=== PATIENT | male | born 1950 | race Caucasian/White ===

== ENCOUNTER → 2024-07-24 10:15 | Outpatient (REF) | payer MEDICARE, OTHER, SELFPAY | LOC: RAD 10:15 | PROVIDERS: ATTENDING PHYSICIAN Physician Assistant | DX: R20.0 Anesthesia of skin (principal) | CPT/HCPCS: 72052 ==

== ENCOUNTER → 2024-09-12 08:04 | Outpatient (REF) | payer MEDICARE, OTHER, SELFPAY | LOC: MRI 3T 08:04 | PROVIDERS: ATTENDING PHYSICIAN Physician Assistant | DX: R93.89 Abnormal findings on diagnostic imaging of other specified body structures (principal) | CPT/HCPCS: 70551 ==

== ENCOUNTER 2024-12-07 10:17 | Emergency (ER) | payer MEDICARE, OTHER, SELFPAY ==
[2024-12-07 10:24] VITALS: BP 138/84
[2024-12-07 11:00] VITALS: BP 142/90
[2024-12-07 11:37] LABS: ALT (SGPT) 148 U/L (0-50); AST (SGOT) 163 U/L (17-59); Albumin 3.6 g/dl (3.5-5.0); Alkaline Phosphatase 123 U/L (38-126); Blood Urea Nitrogen 21 mg/dl (9-20); Calcium 8.7 mg/dl (8.4-10.2); Carbon Dioxide 26 mmol/L (22-30); Chloride 105 mmol/L (98-107); Glucose 100 mg/dl (70-99); Potassium 3.6 mmol/L (3.5-5.1); Sodium 137 mmol/L (135-145); Total Protein 6.2 g/dl (6.3-8.2); eGFR > 60.00
[2024-12-07] MEDS: NSS 1000 IV (11:37)
[2024-12-07] MEDS: ZOFRAN 4 MG IV (11:38)
[2024-12-07] MEDS: PEPCID 20 MG IV (11:39)
[2024-12-07 11:41] LABS: Lipase 117 U/L (23-300)
[2024-12-07 11:43] LABS: Hematocrit 43.9 % (39.0-52.0); Hemoglobin 15.2 g/dL (13.0-18.0); Mean Corp Hgb Conc. 34.6 g/dL (33.0-37.0); Mean Corpuscular Hgb 32.2 pg (27.0-31.0); Red Blood Cell Count 4.72 10^6/uL (4.70-6.10); White Blood Cell Count 8.3 10^3/uL (4.8-10.8)
[2024-12-07 12:00] VITALS: BP 141/83
[2024-12-07 12:54] LABS: Mean Platelet Volume 12.2 fL (7.4-10.4); Platelet Count 51 10^3/uL (130-400)
[2024-12-07 13:00] VITALS: BP 147/85
--- NOTE | 2024-12-07 13:27 | ED.GENMED ---
History of Present Illness
<GLEN Rogers Last Filed: 12/07/24 14:30>
General
Chief Complaint: Abdominal Symptoms
Source: patient
Exam Limitations: none
Time Seen by Provider: 12/07/24 11:03
History of Present Illness
History of Present Illness:
74-year-old male otherwise quite healthy presents with 3 to 4 days worth of fatigue sweats chills nausea. He had vomiting at the onset of the symptoms. He had temperature maximum at home of 102. There is no significant abdominal pain. No
diarrhea. His ate all the same food he did and she did not get sick. He feels overall tired and dehydrated. No other complaints
Past History
<GLEN Rogers Last Filed: 12/07/24 14:30>
Past History
ED Past Medical History: None
ED Past Surgical History: Orthopedic (ACL right knee surgery)
Social History
Tobacco: Non-smoker
Personal:
Living: with family
Employment: Employed
Phy Exam
<GLEN Rogers Last Filed: 12/07/24 14:30>
Physical Exam
Physical Exam:
General: Well-appearing male no acute respiratory distress
HEENT normocephalic atraumatic
Heart: Regular rate and rhythm
Lungs: Clear no wheeze
Abdomen is soft nontender nondistended no guarding or rebound
Extremities: No cyanosis or edema
Skin warm no rash
Course
<GLEN Rogers Last Filed: 12/07/24 14:30>
Orders/Labs/Results
Orders:
Orders
12/07/24 11:07
Complete Blood Count/With Diff Urgent
Comprehensive Metabolic Panel Urgent
Lipase Urgent
Comment: ADD ON
Manual Differential Urgent
Monotest Urgent
Comment: ADD ON
12/07/24 11:15
Famotidine [Pepcid] 20 mg IV NOW STA
12/07/24 11:16
Add On- LAB Urgent
Tests Added?: lipase
12/07/24 11:20
Ondansetron Injectable [Zofran] 4 mg IV NOW STA
12/07/24 11:30
0.9% Sodium Chloride 1000 ml [Nss] 1,000 ml IV BOLUS
12/07/24 15:24
Add On- LAB Urgent
Tests Added?: monospot
Abnormal Lab Results
12/07/24
11:07
MCH 32.2 H pg
(27.0-31.0)
Plt Count 51 L 10^3/uL
(130-400)
MPV 12.2 H fL
(7.4-10.4)
BUN 21 H mg/dl
(9-20)
Glucose 100 H mg/dl
(70-99)
AST 163 H U/L
(17-59)
ALT 148 H U/L
(0-50)
Total Protein 6.2 L g/dl
(6.3-8.2)
12/07/24 11:07
12/07/24 11:07
Vital Signs
Initial and Last Documented VS:
Initial Vital Signs
Temp Pulse Resp BP Pulse Ox
98.0 F 94 16 138/84 95
12/07/24 10:24 12/07/24 10:24 12/07/24 10:24 12/07/24 10:24 12/07/24 10:24
Last Documented Vital Signs
Temp Pulse Resp BP Pulse Ox
98.0 F 71 16 139/83 91
12/07/24 10:24 12/07/24 15:38 12/07/24 15:38 12/07/24 15:38 12/07/24 15:38
<Marya Monson PA-C - Last Filed: 12/07/24 15:40>
Orders/Labs/Results
Orders:
Orders
12/07/24 11:07
Complete Blood Count/With Diff Urgent
Comprehensive Metabolic Panel Urgent
Lipase Urgent
Comment: ADD ON
Manual Differential Urgent
Monotest Urgent
Comment: ADD ON
12/07/24 11:15
Famotidine [Pepcid] 20 mg IV NOW STA
12/07/24 11:16
Add On- LAB Urgent
Tests Added?: lipase
12/07/24 11:20
Ondansetron Injectable [Zofran] 4 mg IV NOW STA
12/07/24 11:30
0.9% Sodium Chloride 1000 ml [Nss] 1,000 ml IV BOLUS
12/07/24 15:24
Add On- LAB Urgent
Tests Added?: monospot
Abnormal Lab Results
12/07/24
11:07
MCH 32.2 H pg
(27.0-31.0)
Plt Count 51 L 10^3/uL
(130-400)
MPV 12.2 H fL
(7.4-10.4)
BUN 21 H mg/dl
(9-20)
Glucose 100 H mg/dl
(70-99)
AST 163 H U/L
(17-59)
ALT 148 H U/L
(0-50)
Total Protein 6.2 L g/dl
(6.3-8.2)
12/07/24 11:07
12/07/24 11:07
Vital Signs
Initial and Last Documented VS:
Initial Vital Signs
Temp Pulse Resp BP Pulse Ox
98.0 F 94 16 138/84 95
12/07/24 10:24 12/07/24 10:24 12/07/24 10:24 12/07/24 10:24 12/07/24 10:24
Last Documented Vital Signs
Temp Pulse Resp BP Pulse Ox
98.0 F 71 16 139/83 91
12/07/24 10:24 12/07/24 15:38 12/07/24 15:38 12/07/24 15:38 12/07/24 15:38
<Christiano Desai PA-C - Last Filed: 12/07/24 14:30>
MDM/Problems Addressed
Differential Diagnosis Includes:
Fatigue chills sweats nauseous vomiting fever. Benign abdominal exam. Consider viral illness versus electrolyte abnormality
Check labs. Fluids ordered. Zofran and Pepcid ordered
<Marya Monson PA-C - Last Filed: 12/07/24 15:40>
*Critical Care Note
Total Time (30-74mins, 75-104mins- exclusive of procedures): Not Applicable
<Christiano Desai PA-C - Last Filed: 12/07/24 14:30>
Update Note
Update Note:
Patient reevaluated feeling better after Zofran and fluids. I suspect underlying viral illness. Of note, however, patient has thrombocytopenia with a platelet count of 51. This is new for him. There is no blood or of active bleeding. Liver
functions also slightly elevated. Suspect underlying viral illness. Advise recheck of blood work next week. Will prescribe Zofran if needed for nausea. Stable for discharge
<Marya Monson PA-C - Last Filed: 12/07/24 15:40>
Update Note
Update Note:
Patient reevaluated feeling better after Zofran and fluids. I suspect underlying viral illness. Of note, however, patient has thrombocytopenia with a platelet count of 51. This is new for him. There is no blood or of active bleeding. Liver
functions also slightly elevated. Suspect underlying viral illness. Advise recheck of blood work next week. Will prescribe Zofran if needed for nausea. Stable for discharge
1538: I assumed care of patient awaiting path review of CBC. Only additional abnormality is atypical lymphocytosis of 19%. Monospot added for completeness. Patient remains well appearing and is asymptomatic on reassessment. He is eager to be
discharged.
ED Attending Note
<Christiano Desai PA-C - Last Filed: 12/07/24 14:30>
-
Portions of this chart may have been created with voice recognition software.� Occasional wrong word or��sound alike� substitutions may have occurred due to the inherent limitations of voice recognition software.
Discharge Plan
Departure
Patient Disposition: Home (Routine Discharge)
Date of Disposition: 12/07/24
Time of Disposition: 15:32
Patient with high blood pressure during this ER visit?: Yes
Discharge Problem:
Vomiting, Thrombocytopenia, Transaminitis
Instructions: Nausea and Vomiting, Adult (DC)
Prescriptions:
New
ondansetron 4 mg tablet,disintegrating
4 mg PO Q8H PRN (Reason: nausea and vomiting) Qty: 10 0RF
No Action
rabies vacc,human diploid (PF) [Imovax Rabies Vaccine (PF)] 1 ML recon soln
1 ml IM DAILY Qty: 3 0RF
Rx Instructions:
Give one ml IM on 02/11, 02/15 and 02/22
Referrals:
Antelmo Montesinos PA [Family Provider, Family Practice]
Activity Restrictions/Additional Instructions:
As discussed, your platelets were slightly low in your blood work and your liver functions were slightly elevated. This could be related to underlying viral illness. The Zofran if needed for nausea. Please recheck with your doctor and have blood
rechecked next week. Return here for worsening symptoms including vomiting pain or bleeding.
Interventions
Interventions:
*Risk Screen - Suicide Last Done: 12/07/24 10:24
*General Assessment Last Done: 12/07/24 11:40
*Neglect/Abuse Screening Last Done: 12/07/24 10:24
*ED- Fall Risk Assessment Last Done: 12/07/24 11:40
*ED COVID-19 Vaccine History Last Done: 12/07/24 11:40
AW-Pvgwjf-Izgplhzjoy Assessment Last Done: 12/07/24 11:05
Discharge Date and Time
Print Language: [place]
[2024-12-07 15:10] LABS: Absolute Neutrophils -Man Diff 4.6 10^3/uL (1.4-6.5); Atypical Lymphocytes 19 %; Band Neutrophils 1 % (0-3); Lymphocytes 23 % (20-51); Monocytes 2 % (2-9); Segmented Neutrophils 55 % (42-75)
[2024-12-07 15:13] LABS: Platelets Checked Yes
[2024-12-07 15:14] LABS: Normal RBC Morphology Yes; Total Cells Counted 100
[2024-12-07 15:38] VITALS: BP 139/83
[2024-12-07 16:38] LABS: Monotest Negative (Negative)
== END 2024-12-07 15:44 | disposition home or self-care (01) ==
LOC: EMR 10:17
PROVIDERS: EMERGENCY PHYSICIAN Emergency Medicine; FAMILY PHYSICIAN Physician Assistant
DX: R11.2 Nausea with vomiting, unspecified (principal); D69.6 Thrombocytopenia, unspecified; R74.01 Elevation of levels of liver transaminase levels
CPT/HCPCS: 96374; 96375; 96361; 99284; 80053; 83690; 85025; 86308

== ENCOUNTER 2024-12-11 17:49 | Emergency (ER) | payer MEDICARE, OTHER, SELFPAY ==
[2024-12-11 17:54] VITALS: BP 125/66
[2024-12-11 18:25] LABS: % Basophils 0.4 % (0-2); % Eosinophils 0.2 % (0-6); % Immature Granulocytes 1.2 % (0-0.5); % Monocytes 9.2 % (1.7-9.3); Absolute Immature Granulocytes 0.1 10^3/uL (0-0.05); Absolute Lymphocytes 2.6 10^3/uL (1.2-3.4); Absolute Neutrophils 6.7 10^3/uL (1.4-6.5); Hematocrit 40.1 % (39.0-52.0); Hemoglobin 13.9 g/dL (13.0-18.0); Mean Corp Hgb Conc. 34.7 g/dL (33.0-37.0); Mean Corpuscular Hgb 32.1 pg (27.0-31.0); Mean Corpuscular Volume 92.6 fL (80.0-94.0); Mean Platelet Volume 10.2 fL (7.4-10.4); Nucleated Red Blood Cells % 0 % (-); Platelet Count 215 10^3/uL (130-400); Red Blood Cell Count 4.33 10^6/uL (4.70-6.10); Red Cell Dist. Width 13.2 % (11.5-14.5); White Blood Cell Count 10.4 10^3/uL (4.8-10.8)
[2024-12-11 18:38] LABS: Lactic Acid 0.7 mmol/L (0.7-2.0)
[2024-12-11 18:45] LABS: ALT (SGPT) 108 U/L (0-50); AST (SGOT) 60 U/L (17-59); Albumin 3.6 g/dl (3.5-5.0); Alkaline Phosphatase 109 U/L (38-126); Blood Urea Nitrogen 10 mg/dl (9-20); Calcium 8.5 mg/dl (8.4-10.2); Carbon Dioxide 21 mmol/L (22-30); Chloride 106 mmol/L (98-107); Glucose 114 mg/dl (70-99); Potassium 4.1 mmol/L (3.5-5.1); Sodium 134 mmol/L (135-145); Total Bilirubin 0.8 mg/dl (0.2-1.3); Total Protein 6.3 g/dl (6.3-8.2); eGFR > 60.00
[2024-12-11 19:32] VITALS: BP 132/79
[2024-12-11 19:34] VITALS: BMI 26.1
[2024-12-11 19:45] LABS: Urine Albumin 1+ (Neg - Trace); Urine Bilirubin Negative (Negative); Urine Character Clear (Clear); Urine Color Yellow; Urine Glucose Negative (Negative); Urine Ketone 3+ (Negative); Urine Leukocyte Negative (Negative); Urine Nitrite Negative (Negative); Urine Occult Blood Negative (Negative); Urine Urobilinogen 2+ (Neg - 1+)
[2024-12-11 20:03] LABS: Urine Calcium Oxalate Crystals Present; Urine Red Blood Cell 0-2 /HPF (0-2); Urine Squamous Cell None seen /LPF (Few); Urine White Cell 0-2 /HPF (0-5)
[2024-12-11 21:47] VITALS: BP 123/85
--- NOTE | 2024-12-11 22:03 | ED.GENMED ---
History of Present Illness
General
Chief Complaint: Fever
Source: patient and spouse
Time Seen by Provider: 12/11/24 18:57
History of Present Illness
History of Present Illness:
Note:
CHIEF COMPLAINT(S)
Fatigue and nausea.
HISTORY OF PRESENT ILLNESS
The patient is a 74-year-old male with a history of inner ear issues, compressed disc, and pinched nerve presenting with fatigue and nausea. Symptoms began approximately a week and a half ago with disorientation and difficulty standing up, followed
by excessive sleepiness. The patient reported vomiting last . He received IV fluids during a previous ER visit, which improved his appetite slightly. Fever was noted, responsive to acetaminophen. The patient continues to experience
persistent fatigue and nausea, but no abdominal pain, diarrhea, or new cough. Chronic cough attributed to woodworking is ongoing, with decreased frequency and severity.
ADDITIONAL HISTORY OBTAINED FROM SOURCES OTHER THAN THE PATIENT
According to the spouse, the patient has been excessively sleeping and had a fever starting approximately a week ago Saturday.
PAST MEDICAL HISTORY
- Inner ear issues affecting balance
- History of shingles
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
PHYSICAL EXAM
- The patient is awake, alert, and oriented.
- No respiratory distress noted.
- The heart is regular without murmur.
- Lungs are clear and equal bilaterally.
- Abdomen is not distended; no tenderness, rebound, or guarding.
- No costovertebral angle tenderness.
- No rashes observed.
- Cranial nerves are grossly intact.
- No focal motor deficits.
- Skin is warm, well-perfused, and dry.
- Nursing notes reviewed and vital signs reviewed.
PLAN
- Obtain urine sample to rule out urinary tract infection.
- Perform chest X-ray to exclude pneumonia, considering chronic cough history.
- Compare current findings with previous ER visit to assess for any changes or new insights.
- Consider potential viral illnesses, Lyme disease, or other persistent infections if initial tests are inconclusive.
DIFFERENTIAL DIAGNOSIS
The Differential Diagnosis includes, in no particular order and is not limited to:
1. Viral illness
2. Urinary tract infection
3. Pneumonia
4. Lyme disease
5. Vestibular dysfunction
6. Electrolyte imbalance
7. Dehydration
8. Medication side effect
9. Anemia
10. Gastrointestinal infection
Disposition:
SUMMARY OF ENCOUNTER
[id number] male presented feeling and appearing much improved. Abdomen is benign. Lungs are clear. Further evaluation with CT was considered however patient would like to forego that at this time.patient does agree to follow-up with his PCP
for ongoing evaluation blood cultures and Lyme testing was sent and are pending. White blood cell count okay.
DISPOSITION
The patient feels well enough to go home and will follow up with his PCP.
INDEPENDENT REVIEW OF LABS AND INTERPRETATION OF TESTS
- My independent review of the CBC shows normal white count and platelets at 215,000, which are improved from the recent visit on December 07.
RADIOLOGY � INDEPENDENT INTERPRETATION:
- My independent interpretation of the chest X-ray is no evidence of pneumonia.
MEDICAL DECISION MAKING
1. Chronic conditions affecting care: History of inner ear issues, compressed disc, and pinched nerve.
2. Data Reviewed:
- Labs were reviewed, including improvement in platelets from December 07.
- Old records inclusive of labs from December 07 and October 08 were reviewed.
- Chest X-ray interpreted showing no pneumonia.
3. Risk: Consideration of admission/observation was made due to complexity/risk. However, outpatient management is appropriate based on reassuring work-up, stable vitals, symptom control, and follow-up reliability.
PATHOLOGIES TO CONSIDER
- Viral illness
- Hematologic disorders
Past History
Past History
ED Past Medical History: None
ED Past Surgical History: Orthopedic (ACL right knee surgery)
Social History
Tobacco: Non-smoker
Personal:
Living: with family
Employment: Employed
Phy Exam
Physical Exam
Physical Exam:
.
Course
Orders/Labs/Results
Orders:
Orders
12/11/24 18:14
Complete Blood Count/With Diff Urgent
Comprehensive Metabolic Panel Urgent
Lactate Level [Lactic Acid] Urgent
Lyme Progressive Urgent
Blood Culture Urgent
YOSSI Source: Blood/Venous
Specimen Description:
12/11/24 19:09
Add On- LAB Urgent
Tests Added?: lyme progressive
CR Chest - 2 Views Urgent
Comment:
Reason For Exam: fever
12/11/24 19:23
Urinalysis Reflex To Culture Urgent
Date Specimen was Collected: 12/11/24
Time Specimen was Collected: 19:05
Urine Microscopic Reflex Cult Urgent
Blood Culture Urgent
YOSSI Source: Blood/Venous
Specimen Description:
Abnormal Lab Results
12/11/24 12/11/24
18:14 19:23
RBC 4.33 L 10^6/uL
(4.70-6.10)
MCH 32.1 H pg
(27.0-31.0)
Abs Immat Gran (auto) 0.1 H 10^3/uL
(0-0.05)
Absolute Neuts (auto) 6.7 H 10^3/uL
(1.4-6.5)
Absolute Monos (auto) 1.0 H 10^3/uL
(0.1-0.6)
Immature Gran % 1.2 H %
(0-0.5)
Sodium 134 L mmol/L
(135-145)
Carbon Dioxide 21 L mmol/L
(22-30)
Glucose 114 H mg/dl
(70-99)
AST 60 H U/L
(17-59)
ALT 108 H U/L
(0-50)
Urine Ketones 3+ A
(Negative)
Urine Urobilinogen 2+ A
(Neg - 1+)
Urine Albumin (Reflex) 1+ A
(Neg - Trace)
12/11/24 18:14
12/11/24 18:14
Vital Signs
Initial and Last Documented VS:
Initial Vital Signs
Temp Pulse Resp BP Pulse Ox
99.1 F 89 16 125/66 93
12/11/24 17:54 12/11/24 17:54 12/11/24 17:54 12/11/24 17:54 12/11/24 17:54
Last Documented Vital Signs
Temp Pulse Resp BP Pulse Ox
98.9 F 85 16 123/85 98
12/11/24 21:47 12/11/24 21:47 12/11/24 21:47 12/11/24 21:47 12/11/24 21:47
*Pulse Oximetry
SaO2: 98
Oxygen Mode of Delivery: Room air
Patient hypoxic: no
*Critical Care Note
Total Time (30-74mins, 75-104mins- exclusive of procedures): Not Applicable
ED Attending Note
-
Portions of this chart may have been created with voice recognition software.� Occasional wrong word or��sound alike� substitutions may have occurred due to the inherent limitations of voice recognition software.
Discharge Plan
Departure
Patient Disposition: Home (Routine Discharge)
Date of Disposition: 12/11/24
Time of Disposition: 22:04
Patient with high blood pressure during this ER visit?: No
Discharge Problem:
Fatigue, Nausea, Fever
Instructions: Fever, Adult (DC), Acute Nausea and Vomiting
Prescriptions:
No Action
rabies vacc,human diploid (PF) [Imovax Rabies Vaccine (PF)] 1 ML recon soln
1 ml IM DAILY Qty: 3 0RF
Rx Instructions:
Give one ml IM on 02/11, 02/15 and 02/22
ondansetron 4 mg tablet,disintegrating
4 mg PO Q8H PRN (Reason: nausea and vomiting) Qty: 10 0RF
Referrals:
Antelmo Montesinos PA [Family Provider, Family Practice]
Activity Restrictions/Additional Instructions:
Please see your doctor in the next 3 to 5 days for follow-up and reevaluation further workup if your symptoms persist. Blood cultures are pending. Lyme testing is also pending. Return immediately for intractable vomiting, abdominal pain,
shortness of breath, changes in mentation or any other concerns. Please drink plenty of fluids.
Interventions
Interventions:
*Risk Screen - Suicide Last Done: 12/11/24 19:34
*General Assessment Last Done: 12/11/24 19:34
*Neglect/Abuse Screening Last Done: 12/11/24 19:34
*ED- Fall Risk Assessment Last Done: 12/11/24 17:54
*ED COVID-19 Vaccine History Last Done: 12/11/24 17:54
ED- Neurological Assessment Last Done: 12/11/24 19:34
ED-Skin Assessment Last Done: 12/11/24 19:34
Discharge Date and Time
Print Language: FAROESE
[2024-12-11 22:07] VITALS: BP 139/80
[2024-12-14 13:43] LABS: Lyme Antibody Screen, EIA Equivocal (Negative)
== END 2024-12-11 22:19 | disposition home or self-care (01) ==
LOC: EMR 17:49
PROVIDERS: Student in an Organized Health Care Education/Training Program; EMERGENCY PHYSICIAN Emergency Medicine; FAMILY PHYSICIAN Physician Assistant
DX: R50.9 Fever, unspecified (principal); R53.83 Other fatigue; R11.0 Nausea
CPT/HCPCS: 99284; 71046; 80053; 81003; 81015; 83605; 85025; 86617; 86618; 87040

== ENCOUNTER 2024-12-14 14:41 | Inpatient (IN) | payer MEDICARE, OTHER, SELFPAY ==
[2024-12-14] VITALS (11 sets, daily range): BP systolic 100–151; BP diastolic 56–78; BMI 25.1; BMI 25.3
[2024-12-14 10:36] LABS: % Basophils 0.1 % (0-2); % Immature Granulocytes 0.6 % (0-0.5); % Lymphocytes 10.8 % (20.5-51.1); % Monocytes 5.1 % (1.7-9.3); % Neutrophils 83.4 % (42.2-75.2); Absolute Lymphocytes 0.7 10^3/uL (1.2-3.4); Absolute Monocytes 0.4 10^3/uL (0.1-0.6); Absolute Neutrophils 5.7 10^3/uL (1.4-6.5); Hematocrit 40.7 % (39.0-52.0); Hemoglobin 13.8 g/dL (13.0-18.0); Mean Corp Hgb Conc. 33.9 g/dL (33.0-37.0); Mean Corpuscular Hgb 31.4 pg (27.0-31.0); Mean Corpuscular Volume 92.5 fL (80.0-94.0); Nucleated Red Blood Cells % 0 % (-); Red Cell Dist. Width 13.3 % (11.5-14.5); White Blood Cell Count 6.9 10^3/uL (4.8-10.8)
[2024-12-14 10:44] LABS: ALT (SGPT) 53 U/L (0-50); AST (SGOT) 36 U/L (17-59); Albumin 3.3 g/dl (3.5-5.0); Alkaline Phosphatase 94 U/L (38-126); Blood Urea Nitrogen 22 mg/dl (9-20); Calcium 8.1 mg/dl (8.4-10.2); Carbon Dioxide 22 mmol/L (22-30); Chloride 105 mmol/L (98-107); Estimated Creatinine Clearance 56 ml/min; Glucose 147 mg/dl (70-99); Potassium 4.1 mmol/L (3.5-5.1); Sodium 137 mmol/L (135-145); Total Bilirubin 1.1 mg/dl (0.2-1.3); Total Protein 6.1 g/dl (6.3-8.2); eGFR > 60.00
[2024-12-14 10:48] LABS: Mean Platelet Volume 11.3 fL (7.4-10.4); Platelet Count 84 10^3/uL (130-400)
--- NOTE | 2024-12-14 11:00 | ED.GENMED ---
History of Present Illness
General
Chief Complaint: Weakness
Source: patient and spouse
Exam Limitations: none
Time Seen by Provider: 12/14/24 10:19
Nursing documentation reviewed up to this point in time: agreed with
History of Present Illness
History of Present Illness:
The patient is a 74-year-old male w h/o HLD, left arm tingling due to pinched nerve, presenting with exhaustion and nausea for the past two weeks. He reports feeling dehydrated and has had poor appetite. The patient previously visited the ER last
Saturday and Saturday with similar symptoms, with no significant findings in workup. He has been having fevers, last night 103.0 and today 101.3, last Advil 4 a.m. He reports nausea and vomited once 4 days ago and twice yesterday. No chest pain,
breathing difficulties, abdominal pain, headaches. Feels lightheaded and fatigued. Urination is normal, with the last bowel movement 3 days ago, regular.
Past History
Past History
ED Past Medical History: Hypercholesterolemia
ED Past Surgical History: Orthopedic (ACL right knee surgery) and Tonsilectomy
Social History
Tobacco: Non-smoker
Personal:
Living: with family
Employment: Employed
Review of Systems
Review of Systems
Allergies reviewed?: Yes
All Other Systems: ROS reviewed and negative except as documented in HPI and ROS
Constitutional: Reports fever, weight loss, fatigue and chills
Respiratory: Denies trouble breathing
Cardiac: Denies chest pain, diaphoresis, palpitations or syncope
ABD/GI: Reports nausea, vomiting and anorexia; Denies abdominal pain, diarrhea, bloody stools or black stools
: Denies dysuria, frequency or difficulty voiding
Musculoskeletal: Reports no symptoms
Skin: Reports no symptoms
Neurological: Reports weakness and other (chronic tingling left arm due to pinched nerve); Denies headache
Phy Exam
Physical Exam
Physical Exam:
GENERAL: No acute distress. A&Ox3.
CONSTITUTIONAL: Afebrile.
EYES: clear, conjunctivae normal
ENMT: moist mucus membranes, Pharynx nl
RESPIRATORY: Regular respirations, nonlabored, lungs clear.
CARDIOVASCULAR: Regular rate and rhythm, no murmurs, no rubs.
GI: Soft, nontender, normal BS
MUSCULOSKELETAL: Moves with ease. Well perfused. No edema
SKIN: Warm, dry, pink
PSYCH: Normal mood and affect. Well kept, interactive and appropriate
NEUROLOGIC: Awake, alert and oriented. No focal neurological deficits
Course
Orders/Labs/Results
Orders:
Orders
12/14/24 Breakfast
Regular
At Your Request: Full Participation
Does patient need a safe tray?: No
12/14/24 10:00
Electrocardiogram (*1) Urgent
Reason for Study: Syncope
12/14/24 10:01
EKG- Treatment ONCE
12/14/24 10:15
Complete Blood Count/With Diff Urgent
Comprehensive Metabolic Panel Urgent
NT-proBNP Urgent
Troponin I Urgent
12/14/24 10:58
0.9% Sodium Chloride 1000 ml [Nss] 1,000 ml IV BOLUS
12/14/24 11:07
CT Chest/abd/pel W Iv Cont Urgent
Comment:
Reason For Exam: fever, new abn labs, tachy, SOB, near syncope
12/14/24 11:13
Acetaminophen [Tylenol] 650 mg PO NOW STA
12/14/24 13:24
Electrocardiogram (*1) Urgent
Reason for Study: Tachycardia
EKG- Treatment ONCE
12/14/24 14:02
Admit/Transfer Patient As Directed
Co-Sign Provider:
Level of Care: Inpatient admission
Assign to:: Telemetry
Physician / Group: [email or web address]
Diagnosis: Fever of munknown origin, N/V, Transist new onset A Fib, Low platelets
Reason for Telemetry: Arrhythmia
Date to Stop Telemetry: 12/17/24
Time to Stop Telemetry: 11:00
Reason for Hospitalization: Fever of munknown origin, N/V, Transist new onset A Fib, Low platelets
Expected length of stay greater than two midnights?: Yes
ELOS- Estimated Length of Stay in days: 3
I certify the patient meets the requirements for IP care: Yes
12/14/24 14:05
Code Status As Directed
Resuscitation Status: Full Code
12/14/24 18:10
Acetaminophen [Tylenol] 650 mg PO Q4HPRN PRN
Bisacodyl [Dulcolax] 10 mg RECTAL [id number] PRN
Docusate W/Senna [Senokot-S] 1 tablet PO BIDPRN PRN
Polyethylene Glycol Powder [Miralax] 17 grams PO DAILYPRN PRN
12/14/24 18:10
CARDIOLOGY CONSULT Routine
Consulting Provider: Alfie De La Garza
Was physician already notified: Yes
Reason for consult: New onset prox AF
INFECTIOUS DISEASE CONSULT Routine
Consulting Provider: Serenity Cook
Was physician already notified: Yes
Reason for consult: FUO, low platelets
ONCOLOGY CONSULT Routine
Consulting Provider: Uday Colby
Was physician already notified: Yes
Reason for consult: Trembocytopenia
Activity As Directed
Activity Level: With Assistance
Intake/ Output As Directed
Frequency: Per unit guidelines
Pneumatic Compression Sleeves As Directed
Type: Knee high
Vital Signs As Directed
Frequency: Per unit guidelines
O2 Therapy [RESP] Routine
Nasal Cannula Liter Flow: 2 LPM
Titrate/Wean O2 to maintain O2 sat greater than (%): 94
DX Deep Vein Thrombosis Video Routine
12/14/24 18:45
0.9% Sodium Chloride 1000 ml [Nss] 1,000 ml IV 100 mls/hr
12/14/24 21:05
Lyme Progressive Routine
Troponin I Q8H
12/15/24 02:58
Troponin I Q8H
12/15/24 05:22
Complete Blood Count/With Diff IN AM
Comprehensive Metabolic Panel IN AM
TSH IN AM
12/15/24 06:00
Echo 2D MMode Color/Doppler IN AM
Reason for Study: transient Prx AF new onset
12/15/24 09:38
Troponin I Q8H
12/17/24 11:00
DC Protocol for Telemetry ONCE
Abnormal Lab Results
12/14/24
10:15
RBC 4.40 L 10^6/uL
(4.70-6.10)
MCH 31.4 H pg
(27.0-31.0)
Plt Count 84 L D 10^3/uL
(130-400)
MPV 11.3 H fL
(7.4-10.4)
Absolute Lymphs (auto) 0.7 L 10^3/uL
(1.2-3.4)
Immature Gran % 0.6 H %
(0-0.5)
Neutrophils % 83.4 H %
(42.2-75.2)
Lymphocytes % 10.8 L %
(20.5-51.1)
BUN 22 H mg/dl
(9-20)
Glucose 147 H mg/dl
(70-99)
Calcium 8.1 L mg/dl
(8.4-10.2)
ALT 53 H U/L
(0-50)
Total Protein 6.1 L g/dl
(6.3-8.2)
Albumin 3.3 L g/dl
(3.5-5.0)
12/14/24 10:15
12/14/24 10:15
Vital Signs
Initial and Last Documented VS:
Initial Vital Signs
Pulse Resp Pulse Ox
120 19 90
12/14/24 10:07 12/14/24 10:07 12/14/24 10:07
Last Documented Vital Signs
Temp Pulse Resp BP Pulse Ox
99.8 F 104 20 136/76 93
12/15/24 11:15 12/15/24 11:21 12/15/24 11:15 12/15/24 11:21 12/15/24 11:15
Deputy Sheriff Bailiff consulted with Physician
Deputy Sheriff Bailiff consulted with physician?: Yes
Name of Physician Consulted: Gregory
MDM/Problems Addressed
Differential Diagnosis Includes:
The Differential Diagnosis includes, in no particular order and is not limited to:
1. Viral illness
2. Dehydration
3. Electrolyte Imbalance
5. Acute Renal Insufficiency
6. Sepsis
7. TN
8. Atrial Fibrillation
MDM/Problems Addressed:
The patient is a 74-year-old male w h/o HLD, left arm tingling due to pinched nerve, presenting with exhaustion and nausea for the past two weeks. He reports feeling dehydrated and has had poor appetite. The patient previously visited the ER last
Saturday and Saturday with similar symptoms, with no significant findings in workup. He has been having fevers, last night 103.0 and today 101.3, last Advil 4 a.m. He reports nausea and vomited once 4 days ago and twice yesterday. No chest pain,
breathing difficulties, abdominal pain, headaches. Feels lightheaded and fatigued. Urination is normal, with the last bowel movement 3 days ago, regular.
EKG: Afib with RVR HR 111, new
Seen here on 12/07 and 12/11 for similar symptoms, no significant findings. offered CT abd for mild elevation in liver enzymes but pt declined at that time.
Plan: IVFs, basic labs, troponin. With weight loss, fevers, significant fatigue, after discussion with Dr. Jenkins, persistent symptoms with get CT chest/abd/pelvis
12:00 p.m.
CBC: Platelets 84 otherwise unremarkable
CMP: No clinically significant abnormality
1:[address] abd/pelvis/chest showing nothing acute
74 yo here for 3rd time in one week for fevers, severe general fatigue, can't hold anything down, new onset a fib on arrival, now sinus with PACs, new onset thrombocytopenia.
Hospitalist notified of admission.
*Pulse Oximetry
SaO2: 91
Oxygen Mode of Delivery: Room air
Patient hypoxic: yes
*Critical Care Note
Total Time (30-74mins, 75-104mins- exclusive of procedures): Not Applicable
ED Attending Note
-
Portions of this chart may have been created with voice recognition software.� Occasional wrong word or��sound alike� substitutions may have occurred due to the inherent limitations of voice recognition software.
Discharge Plan
Departure
Patient Disposition: Admit
Date of Disposition: 12/14/24
Time of Disposition: 13:19
Admit to: Telemetry
Presentation/result/management discussed w/ accepting MD/DO: Hospitalist
Condition: Fair
Discharge Problem:
Nausea & vomiting, General weakness, Persistent fever, Thrombocytopenia
Discharge Problem:
(Ruled Out): New onset a-fib
Interventions
Interventions:
*Risk Screen - Suicide Last Done: 12/14/24 18:22
*General Assessment Last Done: 12/14/24 10:10
*Neglect/Abuse Screening Last Done: 12/14/24 10:10
*ED- Fall Risk Assessment Last Done: 12/14/24 17:50
*ED COVID-19 Vaccine History Last Done: 12/14/24 17:50
*Nursing Disposition Last Done: 12/14/24 17:50
ED- Cardiac Assessment Last Done: 12/14/24 11:16
ED- Neurological Assessment Last Done: 12/14/24 11:16
ED- Pulmonary Assessment Last Done: 12/14/24 11:16
Discharge Date and Time
Discharge Date/Time: 12/14/24 17:53
[2024-12-14 11:09] LABS: NT-proBNP 1320 pg/ml; Troponin I < 0.012 ng/ml
[2024-12-14] MEDS: NSS 1000 IV ×2 (11:10→19:54)
[2024-12-14] MEDS: TYLENOL 650 MG PO ×2 (11:18→19:51)
--- NOTE | 2024-12-14 13:28 | HPS.HSE ---
Family Physician
-
Family Physician: VANIA Bahena
Chief Complaint
-
Persistent intermittent fever and, nausea ,
History of Present Illness
74M Non smoker, Healthy M inner ear issues, compressed disc, and pinched nerve, HX of shingles
12/07 first ER visit:
1 week ago onset of fatigue sweats chills associated with nausea and vomiting at the onset. No significant abdominal pain. Noted mildly elevated LFTs. Reported T max at 102 at home reponive to acetaminophen
[place] better with Zofran and IVF at 1st visit to ER suspect Suspect underlying viral illness. DC'd home
12/11 second ER visit:
He came to ER again due to persistent fatigue and nausea. No abdominal pain, diarrhea, or new cough
12/14 third ER visit:
He presented ER today due to T max 103 last night. Took Advil 4 am
Medical History
Past Medical History
Past Medical History: Reports Other ( inner ear issues, compressed disc, and pinched nerve, History of shingles )
Past Surgical History: Reports Other
Social History
Tobacco: Non-smoker
Alcohol: None
Family History
Family History: Not pertinent
Allergies / Home Medications
Allergies reflects when Allergies were last updated in [facility].
Home Medications with original date entered in [facility]
Allergy/Medication List:
Allergies
Allergy/AdvReac Type Severity Reaction Status Date / Time
No Known Allergies Allergy Verified 12/07/24 10:27
Home Medications
rabies vacc,human diploid (PF) 2.5 unit intramuscular solution (Imovax Rabies Vaccine (PF)) 1 ml IM DAILY #3 vials 02/08/15
ondansetron 4 mg disintegrating tablet 4 mg PO Q8H PRN nausea and vomiting #10 tabs 12/07/24
Review of Systems
-
Constitutional: Reports Fever and Fatigue
EENT: Reports No Symptoms
Respiratory: Reports No Symptoms
Cardiac: Reports No Symptoms
Abdomen/GI: Reports Nausea and Vomiting
: Reports No Symptoms
Musculoskeletal: Reports No Symptoms
Skin: Reports No Symptoms
Neurological: Reports No Symptoms
Endocrine: Reports No Symptoms
Hematologic/Lymphatic: Reports No Symptoms
Psych: Reports No Symptoms
Physical Exam
Vital Signs
Vital Signs
Temp Pulse Resp BP Pulse Ox
100.0 F 102 16 121/56 94
12/14/24 11:11 12/14/24 11:15 12/14/24 11:00 12/14/24 11:00 12/14/24 11:15
Physical Exam
General: Well Developed, Well Nourished and No Apparent Distress
HEENT: NormoCephalic, Moist mucous membranes and Atraumatic
Respiratory: Clear
Cardiac: S1/S2 and Regular Rhythm; No Murmur or Rub
GI: Soft, Non Tender, Non Distended and Normal Bowel Sounds; No Organomegaly
Rectal: Deferred by Provider
Musculoskeletal: No Clubbing, No Cyanosis and No Edema
Skin: No Rash
Neuro: Nonfocal/grossly intact
Laboratory Results
-
12/14/24 10:15
12/14/24 10:15
Laboratory Results
Total Bilirubin 1.1 mg/dl (0.2-1.3) 12/14/24 10:15
AST 36 U/L (17-59) 12/14/24 10:15
ALT 53 U/L (0-50) H 12/14/24 10:15
Alkaline Phosphatase 94 U/L (38-126) 12/14/24 10:15
Troponin I < 0.012 ng/ml 12/14/24 10:15
Data Reviewed
-
Diagnostic Radiology: Report Reviewed by me
CT Scan: Report Reviewed by me
Medical Tests (Nuc Med, Echo, EKG etc): Report Reviewed by me
Lab Data: Labs Reviewed by me
Impression/Plan
-
Selected Entries
12/14/24
10:10 12/14/24
11:06 12/14/24
11:11
Temp 98.6 F 100.0 F
Temp route: Oral
Pulse 121
Resp Rate 22
Blood pressure 131/78
SaO2 91 91
Oxygen Mode of Delivery Room air Room air
Laboratory Tests
12/07/24 12/11/24 12/14/24
11:07 18:14 10:15
WBC 10.4 6.9
Hgb 13.9 13.8
Plt Count 51 L 215 D 84 L D
Immature Gran % 1.2 H 0.6 H
Neutrophils % 64.0 83.4 H
Laboratory Tests
12/11/24 12/14/24
18:14 10:15
Total Bilirubin 0.8 1.1
AST 60 H 36
ALT 108 H 53 H
Troponin I < 0.012
Ank-E-Aoslnpumrgx Pept 1320
12/14/24 10 am EKG
ATRIAL FIBRILLATION WITH RAPID VENTRICULAR RESPONSE
LEFT AXIS DEVIATION
RIGHT BUNDLE BRANCH BLOCK
ABNORMAL ECG
Confirmed by WU DANIEL, GAIL ([id number]) on 12/14/2024 10:09:12 AM
12/14/24 1324 pm EKG
SINUS RHYTHM WITH PREMATURE ATRIAL COMPLEXES
LEFT AXIS DEVIATION
RIGHT BUNDLE BRANCH BLOCK
ABNORMAL ECG
WHEN COMPARED WITH ECG OF 14-DEC-2024 10:02,
SINUS RHYTHM HAS REPLACED ATRIAL FIBRILLATION
12/14/24 CT Chest/abd/pel W Iv Cont
- No acute abnormality identified in the chest, abdomen, or pelvis.
- Hepatic and renal cysts.
- Mild to moderate colonic fecal burden.
12/11/24 CXR
1. No radiographic evidence for pneumonia.
2. Mild subpleural scarring in the right lung apex.
3. Mild elevation of the right hemidiaphragm.
4. Severe tortuosity of the descending thoracic aorta.
Last hospitalist admission:
ASSESSMENT & PLAN
Pending Rx reconciliation
Fever of unknown origin - SIRS picture but no clear origin
Associated with intermittent thrombocytopenia
Marginal hypoxic RI needs 2L NC O2
DDX: acute viral syndrome , acute Lyme , Babesiosis
- 12/11/24 BCX NGTD x2
- Unremarkable CT Chest/abd/pel W Iv Cont as of 12/14
- Unremarkable CXR as of 12/11
- check PCT
- progressive lyme
- ID consult
Intermittent Thrombocytopenia ? clumping
- Heme consult
In NSR
New onset of AF spontaneously converted to NSR
- ECHO
- Card consult
DVT Px: SCD due
Code: Full
IP TLM
--- NOTE | 2024-12-14 15:09 | CON.ID ---
Consultation
-
Date/Time Consultation Requested: December 14, 2024 1415
Date/Time Consultation Performed: December 14, 2024 1519
Requesting Provider: Dr. Job Oliveira
Performing Provider: Dr. Serenity Cook
Reason for Consultation: Intermittent fevers
Chief Complaint / Past History
Chief Complaint
Persistent nausea, night sweats, chills and fever
History of Present Illness
74-year-old male with history of dyslipidemia, who presented to the ER for third time this month due to nausea, poor appetite and fevers. He states symptoms started approximately December 04 when he developed nausea and fatigue, night sweats and chills
as well as fever up to 102. He had emesis x 1. He presented to ER on December 07. Platelet count noted to be low at 51, atypical lymphocytes noted. AST/ALT were elevated. Monoscreen negative. He was discharged to home with diagnosis of viral
illness. However patient did not improve with persistent symptoms. He returned to the ER on December 11; plt normal, AST/ALT elevated. CXR negative. Lyme screen obtained. Blood cultures obtained. Again he was discharged to home. He returned to the
ED today with persistent symptoms. Platelet count 84. LFTs improving. Lyme screen equivocal, Western blot pending. December 11 blood cultures x [address] of the chest abdomen pelvis unremarkable. Slightly hypoxic in the upper 80s
O2 sat room air. Also had transient atrial fibrillation on EKG. He reports constant nausea with very poor appetite. No odynophagia or dysphagia. He has dry heaves. Positive weight loss. No abdominal pain. No diarrhea. +Profound fatigue. No
headache, sinus congestion, or sore throat. He denies cough or shortness of breath. No chest pain. No palpitations. No urine symptoms. No joint pains. No rash. Fever, chills, sweats occur at night. He lives with his . No pets. He does
not garden or mowing the lawn. No hiking. No known tick or insect exposure. 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 He had dental extraction late June 2024. Last travel was to [place] late September 2024 for 1 week. He
was in [place] sightseeing without events. No known tuberculosis exposure.
Past History
Additional Past Medical History:
HLD
CVA (on Brain MRI)
hx Zoster
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
Cervical compressed disc with LUE radiculopathy
Right ACL repair x 2
Hand surgery
Allergy History:
No Known Allergies Allergy (Verified 12/07/24 10:27)
Medications Reviewed: Yes
Current Antibiotics:
none
Social History
Tobacco: Non-Smoker
Alcohol: None
Drug: None
Personal:
Living: With Family
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
Family History
Family History: Not Pertinent
Review of Systems
Review of Systems
General: Fever, Chills and Change in Appetite
HEENT: Negative Stiff Neck, Sinus Problems, Headache or Pharyngitis
Cardiovascular: Negative Chest Pain, Dyspnea or Edema
Respiratory: Negative Dyspnea or Cough
Gasteroenterology: Weight Loss and Nausea; Negative Diarrhea
Genital / Urological: Negative Dysuria or Flank Pain
Hematologic: Negative Impaired Wound Healing
Endocrine: Weight Change, Weakness and Fatigue
Musculoskeletal: Negative Joint Swelling, Arthralgias or Myalgias
Skin / Hair / Nails: Negative Rash or Lesions
Neurological: Dizziness (Chronic)
All systems: All other systems were reviewed and were negative
Vital Signs
Temp Pulse Resp BP Pulse Ox
100.0 F 89 18 111/70 93
12/14/24 11:11 12/14/24 14:45 12/14/24 14:45 12/14/24 14:00 12/14/24 14:45
Physical Exam
Physical Exam
Constitutional: Non-toxic and Other (Tired appearing)
Head: Other (No frontal or maxillary sinus tenderness)
Eyes: No Conjunctival Hemorrhage and Sclera Anicteric; Negative Ocular Discharge
Pharynx: Benign
Oral: No Thrush and No Ulcers
Cardiovascular: Regular Rate and S1/S2; Negative Peripheral Edema
Pulmonary: Clear and Non Labored; Negative Wheezes or Rales
Gastrointestinal: Soft, Non Tender, Non Distended and Normal Bowel Sounds
Genito-Urinary: Negative Suprapubic Tenderness or CVA Tenderness
Extremities: Negative Edema
Musculoskeletal: Negative Joint Swelling, Joint Effusion or Spinal Tenderness
Skin: Negative Jaundice
Wound: Other (Abrasion left patella)
Neurological: AO x 3
Lab / Diagnostic Study Results
12/14/24 10:15
12/14/24 10:15
Abs Immat Gran (auto) 0.0 10^3/uL (0-0.05) 12/14/24 10:15
Absolute Neuts (auto) 5.7 10^3/uL (1.4-6.5) 12/14/24 10:15
Absolute Lymphs (auto) 0.7 10^3/uL (1.2-3.4) L 12/14/24 10:15
Absolute Monos (auto) 0.4 10^3/uL (0.1-0.6) 12/14/24 10:15
Absolute Basos (auto) 0.0 10^3/uL (0-0.2) 12/14/24 10:15
Immature Gran % 0.6 % (0-0.5) H 12/14/24 10:15
Neutrophils % 83.4 % (42.2-75.2) H 12/14/24 10:15
Lymphocytes % 10.8 % (20.5-51.1) L 12/14/24 10:15
Monocytes % 5.1 % (1.7-9.3) 12/14/24 10:15
Eosinophils % 0.0 % (0-6) 12/14/24 10:15
Basophils % 0.1 % (0-2) 12/14/24 10:15
Microbiology Results
12/14/24 CT c/a/p No acute abnormality identified in the chest, abdomen, or pelvis. Hepatic and renal cysts. Mild to moderate colonic fecal burden.
12/11/24 CXR: No radiographic evidence for pneumonia. Mild subpleural scarring in the right lung apex. Mild elevation of the right hemidiaphragm. Severe tortuosity of the descending thoracic aorta.
09/12/24 Brain MRI: There are bilateral foci of CSF signal intensity within the cerebellar hemispheres, the largest in the inferior right cerebellar hemisphere, as reported on recent MRI of the cervical spine. These are compatible with multiple foci
of old infarction.
Assessment / Plan
# Intractable nausea
# Nocturnal fever, nightsweats, chills
# Fatigue
# Intermittent thrombocytopenia
# Transient afib
# Recent Elevated LFT's improving
-CT c/a/p neg
-UA neg
- Bcx x 2 neg to date.
- Recommend TTE
- Continue repeat blood cx's off abx
- Ordered EBV serology panel, HIV. QTB
- check Anaplasma/Erhrlichia PCR, Babesia smear
- Follow Lyme WB.
- observe off abx at this time.
- Trend temps/plt
--- NOTE | 2024-12-14 15:14 | CON.ONC ---
Impression
Impression
Fevers, chills, night sweats; unclear etiology
Variable thrombocytopenia
Plan
Plan
The fluctuation in his platelets for last couple of weeks makes me concerned that he might be a Clopper. I will stop and review his smear. If necessary, we can grab a tube tomorrow with an alternative anticoagulant and run a platelet count on
that. I have no overarching ideas about what his main problem is at this time.
Patient History
History of Present Illness
Consult from Dr. Oliveira regarding thrombocytopenia
This 74-year-old man is admitted because of fevers. This is his third emergency room visit in the last 2 to 3 weeks. He has been coming in due to varying fevers, sweats, and chills as well as fatigue. He is also nauseated most of the time but has
only vomited once. He did return from [facility] a few weeks ago. He denies any tick bites. He has no other seeming exposure to any other exotic sources of infection. His platelets have been 51, 215, and 84 during his 3 visits here in the last 2
weeks. He denies any bleeding or bruising diathesis. He denies any prior hematologic problems.
Patient Medication
�Medication �Instructions �Recorded �Confirmed �Last Taken �Type
ondansetron 4 mg disintegrating 4 mg PO Q8H PRN nausea and 12/07/24 12/14/24 12/13/24 Rx
tablet vomiting #10 tabs
atorvastatin 10 mg tablet 10 mg PO HS 12/14/24 12/14/24 4 Days Ago History
~12/10/24
cholecalciferol (vitamin D3) 1 tab PO DAILY 12/14/24 12/14/24 4 Days Ago History
~12/10/24
gabapentin 300 mg capsule 300 mg PO HS 12/14/24 12/14/24 4 Days Ago History
~12/10/24
ibuprofen 200 mg tablet (Advil) 400 mg PO BIDPRN PRN fever 12/14/24 12/14/24 12/14/24 History
magnesium 1 tab PO DAILY 12/14/24 12/14/24 4 Days Ago History
~12/10/24
Review of Systems
-
All Other Systems: Reviewed and Negative
Physical Exam
-
Physical examination shows the patient to be in no acute distress.
HEENT exam is unremarkable.
There are no palpable nodes.
Chest is clear.
The heart is regular with no murmur or gallop.
The abdomen is soft and nontender with no organomegaly or masses.
Extremities are unremarkable.
Neurologic is grossly intact.
Labs
Lab Results
WBC 6.9 10^3/uL (4.8-10.8) 12/14/24 10:15
RBC 4.40 10^6/uL (4.70-6.10) L 12/14/24 10:15
Hgb 13.8 g/dL (13.0-18.0) 12/14/24 10:15
Hct 40.7 % (39.0-52.0) 12/14/24 10:15
MCV 92.5 fL (80.0-94.0) 12/14/24 10:15
MCH 31.4 pg (27.0-31.0) H 12/14/24 10:15
MCHC 33.9 g/dL (33.0-37.0) 12/14/24 10:15
RDW 13.3 % (11.5-14.5) 12/14/24 10:15
Plt Count 84 10^3/uL (130-400) L D 12/14/24 10:15
MPV 11.3 fL (7.4-10.4) H 12/14/24 10:15
Abs Immat Gran (auto) 0.0 10^3/uL (0-0.05) 12/14/24 10:15
Absolute Neuts (auto) 5.7 10^3/uL (1.4-6.5) 12/14/24 10:15
Absolute Lymphs (auto) 0.7 10^3/uL (1.2-3.4) L 12/14/24 10:15
Absolute Monos (auto) 0.4 10^3/uL (0.1-0.6) 12/14/24 10:15
Absolute Eos (auto) 0.0 10^3/uL (0-0.7) 12/14/24 10:15
Absolute Basos (auto) 0.0 10^3/uL (0-0.2) 12/14/24 10:15
Immature Gran % 0.6 % (0-0.5) H 12/14/24 10:15
Neutrophils % 83.4 % (42.2-75.2) H 12/14/24 10:15
Lymphocytes % 10.8 % (20.5-51.1) L 12/14/24 10:15
Monocytes % 5.1 % (1.7-9.3) 12/14/24 10:15
Eosinophils % 0.0 % (0-6) 12/14/24 10:15
Basophils % 0.1 % (0-2) 12/14/24 10:15
Creatinine 1.1 mg/dL (0.7-1.3) 12/14/24 10:15
Vital Signs
Vital Signs
Temp Pulse Resp BP Pulse Ox
100.0 F 89 18 111/70 93
12/14/24 11:11 12/14/24 14:45 12/14/24 14:45 12/14/24 14:00 12/14/24 14:45
--- NOTE | 2024-12-14 15:30 | CON.CAR ---
Consultation
Consultation Request
Date/Time Consultation Requested: 12/14/24
Date/Time Consultation Performed: 12/14/24
Requesting Provider: Dr. Oliveira
Performing Provider: Dr. LE De La Garza
Reason for Consultation: Newly diagnosed Afib
Medical History
-
History of Present Illness:
Patient came to [facility] ER today for the third time since his initial visit back on 12/07/2024 with ongoing symptoms of lethargy, fever and N/V, cardiology is consulted because he appeared to be in A-fib on telemetry which was new. Patient saw his PCP
on 12/03/2024 for B/L LE pain described as a shooting pain and that he had had a similar pain in the past that was evaluated by orthopedics and that spine injections at that time seemed to help. Patient then went to [facility] ER on 12/07/2024 with
fatigue, diaphoresis, chills and N/V and reported a temperature at home of 102 �F. Workup in the ER on 12/07/2024 showed thrombocytopenia with a platelet count of 51,000, but no active bleeding, also LFTs were elevated and patient was treated for
suspected underlying viral illness, Monospot was negative, patient was discharged home with supportive care. Patient returned to [facility] ER on 12/11/2024 with ongoing leg pain and then also increased odynophagia and fever again. During that ER visit
Lyme assays were added to testing and patient was recommended CT but he chose not to pursue, also of note platelet count had improved to 215,000 and patient was discharged home again with supportive care. Patient returns to the ER again today with
ongoing N/V and feels exhausted. Patient again reporting fevers at home with a Tmax of 103 �F and was now agreeable to CT scan that was overall unremarkable, but patient being admitted with SIRS without clear origin and of note platelet count is
down again and this time is 84,000 prompting evaluation by hematology. Cardiology is now consulted for A-fib with RVR that appears to be new, although no ECG available for ER visits on 12/07/2024 and 12/11/2024, but HR is recorded at that time are
all lower than current HR suggesting a rhythm change between 12/11/2024 and 12/14/2024.
PMH:
Hyperlipidemia
Past Medical History
Past Medical History: Other (in HPI)
Past Surgical History: Orthopedic and Tonsilectomy
Social History
Alcohol: Former (was drinking a glass of wine a day, but now stopped)
Drug: None
Personal:
Living: With Family
Employment: Retired (retired from [employer])
Family History
Family History: CAD (and CVA)
Allergies / Home Medications
Allergy/AdvReac Type Severity Reaction Status Date / Time
No Known Allergies Allergy Verified 12/07/24 10:27
�Medication �Instructions �Recorded �Confirmed �Type
ondansetron 4 mg disintegrating 4 mg PO Q8H PRN nausea and 12/07/24 12/14/24 Rx
tablet vomiting #10 tabs
atorvastatin 10 mg tablet 10 mg PO HS 12/14/24 12/14/24 History
cholecalciferol (vitamin D3) 1 tab PO DAILY 12/14/24 12/14/24 History
gabapentin 300 mg capsule 300 mg PO HS 12/14/24 12/14/24 History
ibuprofen 200 mg tablet (Advil) 400 mg PO BIDPRN PRN fever 12/14/24 12/14/24 History
magnesium 1 tab PO DAILY 12/14/24 12/14/24 History
Review of Systems
-
History Source: Patient
All other systems: Negative unless noted
Physical Exam
Vital Signs
Temp Pulse Resp BP Pulse Ox
100.0 F 96 21 100/70 93
12/14/24 11:11 12/14/24 15:15 12/14/24 15:15 12/14/24 15:00 12/14/24 15:15
GEN: NAD. AAOx3
HEENT: EOMI, MMM
LUNGS: 2 L NC. CTA B/L, no wheeze
CV: Afib on tele. Irreg irreg, S1/S2, no murmur
ABD: soft, BS+, NT/ND
EXT: No edema
NEURO: Gross non-focal
SKIN: No rash
Lab Results
12/14/24 10:15
12/14/24 10:15
Troponin I < 0.012 ng/ml 12/14/24 10:15
Vyf-F-Bozjsvjxawo Pept 1320 pg/ml 12/14/24 10:15
Impression / Plan
-
PCP: Yamel CARO at [facility] primary care [facility]
Card: None prior to admission
Impression:
Admitted with fever and hypoxia 12/14/2024
ER visit for fatigue, fever and N/V 12/07/24
ER visit for fever and a dyne aphasia 12/11/2024
Possible SIRS, no clear source of infection
Acute hypoxic respiratory insufficiency
Intermittent thrombocytopenia
Newly diagnosed paroxysmal A-fib
Hyperlipidemia
Echo 12/14/2024: Study pending
Plan:
-Patient came to [facility] ER today for the third time since his initial visit back on 12/07/2024 with ongoing symptoms of lethargy, fever and N/V, cardiology is consulted because he appeared to be in A-fib on telemetry which was new. Patient saw his
PCP on 12/03/2024 for B/L LE pain described as a shooting pain and that he had had a similar pain in the past that was evaluated by orthopedics and that spine injections at that time seemed to help. Patient then went to [facility] ER on 12/07/2024 with
fatigue, diaphoresis, chills and N/V and reported a temperature at home of 102 �F. Workup in the ER on 12/07/2024 showed thrombocytopenia with a platelet count of 51,000, but no active bleeding, also LFTs were elevated and patient was treated for
suspected underlying viral illness, Monospot was negative, patient was discharged home with supportive care. Patient returned to [facility] ER on 12/11/2024 with ongoing leg pain and then also increased odynophagia and fever again. During that ER visit
Lyme assays were added to testing and patient was recommended CT but he chose not to pursue, also of note platelet count had improved to 215,000 and patient was discharged home again with supportive care. Patient returns to the ER again today with
ongoing N/V and feels exhausted. Patient again reporting fevers at home with a Tmax of 103 �F and was now agreeable to CT scan that was overall unremarkable, but patient being admitted with SIRS without clear origin and of note platelet count is
down again and this time is 84,000 prompting evaluation by hematology. Cardiology is now consulted for A-fib with RVR that appears to be new, although no ECG available for ER visits on 12/07/2024 and 12/11/2024, but HR is recorded at that time are
all lower than current HR suggesting a rhythm change between 12/11/2024 and 12/14/2024.
-ECG reviewed by me shows paroxysmal A-fib, subsequent EKG also from today shows SR. Telemetry during my visit appeared to be A-fib.
-Patient with newly diagnosed paroxysmal atrial fibrillation and he is asymptomatic, denies CP, SOB or palpitations.
-Agree with ongoing telemetry monitoring and this may help determine burden of A-fib. No evidence of conversion pauses on my review of telemetry thus far.
-BP 100/70 and IVF is being given, not sure that we can add rate controlling measures at this time and overall HR is less than 110 most of the time
-Check echo
-Patient reports snoring, but no previous JOCELYNE evaluation, he says he did not have insurance most of his adult life. Would recommend eventual outpatient sleep study
-[id number] is 1 based on age.
-Hematology following for intermittent thrombocytopenia and they suspect he may be a 'clumper'
-ID following as well, Monospot was negative, blood cultures without growth to date Lyme IgG Western blot is pending. Additional labs for Ehrlichia pending
--- NOTE | 2024-12-14 16:37 | W.CHA2DS2VAS ---
[id number] Score
Score
Age in Years (65=0, 65-74=1, >/=75=2): 65-74
Sex (Female=+1): Male
Congestive Heart Failure History (Yes=+1): No
Hypertension History (Yes=+1): No
Stroke/TIA/Thromboembolism History (Yes=+2): No
Vascular Disease History (Yes=+1): No
Diabetes Mellitus (Yes=+1): No
Score >/=2 is otherwise an anticoagulation candidate: 1
[2024-12-14 17:32] LABS: % Basophils 0.2 % (0-2); % Immature Granulocytes 0.6 % (0-0.5); % Lymphocytes 15.1 % (20.5-51.1); % Monocytes 4.5 % (1.7-9.3); % Neutrophils 79.6 % (42.2-75.2); Absolute Lymphocytes 0.7 10^3/uL (1.2-3.4); Absolute Monocytes 0.2 10^3/uL (0.1-0.6); Absolute Neutrophils 3.8 10^3/uL (1.4-6.5); Hematocrit 38.3 % (39.0-52.0); Hemoglobin 13.3 g/dL (13.0-18.0); Mean Corp Hgb Conc. 34.7 g/dL (33.0-37.0); Mean Corpuscular Hgb 31.9 pg (27.0-31.0); Mean Corpuscular Volume 91.8 fL (80.0-94.0); Mean Platelet Volume 12.3 fL (7.4-10.4); Nucleated Red Blood Cells % 0 % (-); Platelet Count 73 10^3/uL (130-400); Red Blood Cell Count 4.17 10^6/uL (4.70-6.10); Red Cell Dist. Width 13.8 % (11.5-14.5); White Blood Cell Count 4.7 10^3/uL (4.8-10.8)
--- NOTE | 2024-12-14 18:00 | PTCARENOTE ---
patient arrived to floor via stretcher from ER, ambulated with assist x1 to BR, gait steady but feels weak, c/o nausea, denies pain, 2L NC maintained, vss, oriented to room and use of call meier, will continue to monitor.
--- NOTE | 2024-12-14 18:05 | W.PN.UPDATE ---
Update Note
Progress Note Update
74-year-old man admitted now after his third emergency department visit since December 07 for fever, nausea, weight loss, intermittent lightheadedness, now with newly diagnosed transient atrial fibrillation now back in sinus rhythm
PMH: H zoster, degenerative disc disease with neuropathic pain, hypercholesterolemia, history of traumatic brain injury x 2, cervical disc disease with neuropathy
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
Allergies: None
Outpatient meds: Atorvastatin 10 mg a day, D3, gabapentin, magnesium, Zofran as needed
Rest of history as below
116/74, pulse 89, respiratory rate 20, afebrile, head neck exam unremarkable, no stigmata of SBE, lungs are clear, occasional extrasystoles, no obvious murmurs, JVD okay, abdomen benign extremities without clubbing cyanosis or edema, pulses palpable
White count 6.9, hemoglobin 13.8, platelets 84, admitted 51 and 215, left shift, some atypical lymphocytes on prior differential, BUN/creatinine are 22 and 1.1, undetectable troponin, proBNP is 1020
ECG: Sinus rhythm with PACs, right bundle branch block left axis
CT of chest, abdomen and pelvis mild abdominal aortic calcification, overall unremarkable
Impression:
Paroxysmal atrial fibrillation [id number] score 1
Right bundle branch block
Fever, weight loss, nausea, thrombocytopenia
Hypercholesterolemia
Cervical degenerative disc disease with neuropathic pain
History of traumatic brain injury
History of H zoster
Plan:
He presents with fever, nausea, intermittent thrombocytopenia, weight loss and lightheadedness without an established underlying diagnosis to date.
In addition he now has paroxysmal atrial fibrillation with right bundle branch block, without prior cardiac history. His [id number] score is 1 for age. He is not hypertensive or have any other risk factors.
He is currently asymptomatic in sinus rhythm. It is conceivable that episodes of lightheadedness he has had in recent weeks correlates with A-fib, but it could also be weight loss, hypotension etc. that is causing his symptoms.
For the present would not anticoagulate. Would not prescribe a beta-mell and would simply observe on telemetry. Will check an echocardiogram.
Defer evaluation of his protean symptoms to primary team.
We will continue to follow.
--- NOTE | 2024-12-14 21:34 | PTCARENOTE ---
patient was offered oral and body hygiene, but the patient stated that they did not want to do it tonight. They will do it tomorrow morning.
[2024-12-14 21:45] LABS: Troponin I < 0.012 ng/ml
[2024-12-14] MEDS: ZOFRAN 4 MG IV (23:01)
[2024-12-15] MEDS: OFIRMEV 100 IV (02:26)
[2024-12-15] MEDS: COMPAZINE 5 MG IV ×2 (02:28→20:26)
[2024-12-15 03:00] VITALS: BP 147/81
[2024-12-15 03:50] LABS: Troponin I < 0.012 ng/ml
[2024-12-15 06:03] LABS: Hematocrit 38.7 % (39.0-52.0); Mean Corp Hgb Conc. 33.6 g/dL (33.0-37.0); Mean Corpuscular Hgb 31.3 pg (27.0-31.0); Mean Corpuscular Volume 93.3 fL (80.0-94.0); Platelet Count 43 10^3/uL (130-400); Red Blood Cell Count 4.15 10^6/uL (4.70-6.10); Red Cell Dist. Width 13.9 % (11.5-14.5); White Blood Cell Count 3.6 10^3/uL (4.8-10.8)
[2024-12-15] MEDS: NSS 1000 IV ×2 (06:11→17:33)
[2024-12-15 06:15] LABS: ALT (SGPT) 44 U/L (0-50); AST (SGOT) 44 U/L (17-59); Alkaline Phosphatase 80 U/L (38-126); Blood Urea Nitrogen 25 mg/dl (9-20); Calcium 8.3 mg/dl (8.4-10.2); Carbon Dioxide 25 mmol/L (22-30); Chloride 109 mmol/L (98-107); Estimated Creatinine Clearance 56 ml/min; Glucose 135 mg/dl (70-99); Potassium 3.9 mmol/L (3.5-5.1); Sodium 140 mmol/L (135-145); Total Bilirubin 1.2 mg/dl (0.2-1.3); Total Protein 5.8 g/dl (6.3-8.2); eGFR > 60.00
[2024-12-15 06:36] LABS: Absolute Neutrophils -Man Diff 3.1 10^3/uL (1.4-6.5); Atypical Lymphocytes 1 %; Band Neutrophils 4 % (0-3); Lymphocytes 11 % (20-51); Normal RBC Morphology Yes; Platelets Checked Yes; Segmented Neutrophils 84 % (42-75)
[2024-12-15 06:37] LABS: Total Cells Counted 100
[2024-12-15 07:32] VITALS: BP 131/79
--- NOTE | 2024-12-15 08:16 | W.PN.HOSP.TC ---
Today's Communication/Plan
-
see plan
Assessment / Plan
Assessment / Plan
Gen: NAD, Awake and alert
Eyes: EOMI, PERRLA, no scleral icterus.
Neck: supple.
CV: RRR, +S1/S2, no m/r/g.
Resp: CTAB anteriorly, no rales, wheezes, or rhonchi.
Abd: +BS, soft, NT, ND
Skin: No rashes.
Neuro: CN 2-12 intact, non-focal.
Psych: Normal mood and affect.
CT C/A/P: No acute abnormality identified in the chest, abdomen, or pelvis. Hepatic and renal cysts. Mild to moderate colonic fecal burden.
Fever, N/V, diaphoresis, chill, mildly elevated LFTs:
-12/07/24 first ER visit: Had fatigue, diaphoresis, chills, N/V, mildly elevated LFTs, no abdominal pain, fever 102 F. Improved with Zofran/IVFs, thought to be a viral illness, discharged home.
-12/11/24 second ER visit: had persistent fatigue/N. No abdominal pain, diarrhea, or new cough.
-12/14/24 third ER visit: fever 103 F
-imaging above
-febrile here
-U/A unremarkable
-monospot NEG
-BCxs 12/11/24 NGTD, follow BCx 12/14/24
-leukopenia with L-shift, also thrombocytopenia
-ID/heme following
-follow EBV/HIV/QTB, Anaplasma/Ehrlichia PCR, Babesia smear, Lyme WB
-started on empiric Doxy by ID pending results
-discussed with ID
Thrombocytopenia:
-worsening
-heme following, discussed with heme
-suspect thrombocytopenia is consumptive and related to likely tick-borne illness
PAF (new Dx):
-cards following
-check echo
-BMSHT-Irhc-0 = 1, no AC regardless considering worsening thrombocytopenia
FULL/SCDs
Total time spent on today's encounter was 50 minutes which included time spent in counseling the patient/family regarding diagnosis and treatment plan as listed above, goals of care, and symptom management. Case was discussed with nursing staff,
specialists, and care coordinators/case management. All labs and imaging personally reviewed by me. Remainder the time spent in detailed review of previous records, lab data, imaging, and other medical provider documentation.
Anticipated Discharge: 24 - 48 hours
Subjective/Interval History
-
Date of Service: December 15, 2024
No new complaints.
Objective Data
-
Labs:
Laboratory Results
12/15/24
05:22
WBC 3.6 L
Hgb 13.0
Hct 38.7 L
Plt Count 43 L D
Sodium 140
Potassium 3.9
Chloride 109 H
Carbon Dioxide 25
BUN 25 H
Creatinine 1.1
Glucose 135 H
Calcium 8.3 L
Total Bilirubin 1.2
AST 44
ALT 44
Alkaline Phosphatase 80
Vital Signs:
Vital Signs
Temp Pulse Resp BP Pulse Ox
99.1 F 104 24 131/79 91
12/15/24 07:32 12/15/24 07:32 12/15/24 07:32 12/15/24 07:32 12/15/24 07:32
[2024-12-15] MEDS: VIBRAMYCIN 100 MG PO ×2 (08:21→21:11)
[2024-12-15 10:20] LABS: Troponin I < 0.012 ng/ml
[2024-12-15 11:15] VITALS: BP 136/76
[2024-12-15] MEDS: TOPROL XL 25 MG PO (11:21)
--- NOTE | 2024-12-15 11:31 | W.PN.UPDATE ---
Update Note
Progress Note Update
No platelet clumping reported on manual slide review.
Suspect thrombocytopenia is related to underlying illness
Patient has been started on doxycycline; clinical picture could be c/w tick-borne illness such at babesia
Monitor for bleeding
Will follow along.
--- NOTE | 2024-12-15 13:39 | W.PN.ID1 ---
Date of Service
Date of Service: December 15, 2024
Today's Communication
Start empiric doxycyline.
Assessment / Plan
# Intractable nausea
# Fever, nightsweats, chills
# Fatigue
# thrombocytopenia worse
# Transient afib
# Recent Elevated LFT's improving
-CT c/a/p neg
-UA neg
- Bcx x 2 neg to date.
- Follow repeat blood cx's
- TTE pending
- EBV serology panel, HIV. QTB, pending
- Babesia smear - no parasite
- Anaplasma/Erhrlichia PCR pending
- Follow Lyme WB.
- Of note, + exposure to mice/rodents droppings
To consider leptospirosis, Streptobacillus moniliformis, etc
- Start empiric doxycycline 100mg po bid.
- Trend temps, plt
Chief Complaint
-: Fever
Subjective / Review of Systems
at bedside.
He feels the same, no better.
Vital Signs / Physical Exam
Vital Signs
Vital Signs
Temp Pulse Resp BP Pulse Ox
99.8 F 104 20 136/76 93
12/15/24 11:15 12/15/24 11:21 12/15/24 11:15 12/15/24 11:21 12/15/24 11:15
Selected Entries
12/14/24
19:00 12/14/24
23:00 12/15/24
03:00
Temp 102.4 F H 101.7 F H 101.0 F H
Physical Exam
Constitutional: Acutely Ill
Eyes: No Conjunctival Hemorrhage and Sclera Anicteric
Cardiovascular: Regular Rate and S1/S2
Pulmonary: Clear
Gastrointestinal: Soft, Non Tender, Non Distended and Normal Bowel Sounds
Genito-Urinary: Negative CVA Tenderness
Extremities: Negative Edema
Neurological: AO x 3; Negative Meningeal Signs
Objective Data
Lab Data
Lab Results
12/15/24 05:22
12/15/24 05:22
Estimated Creat Clear 56 ml/min 12/15/24 05:22
Total Bilirubin 1.2 mg/dl (0.2-1.3) 12/15/24 05:22
AST 44 U/L (17-59) 12/15/24 05:22
ALT 44 U/L (0-50) 12/15/24 05:22
Alkaline Phosphatase 80 U/L (38-126) 12/15/24 05:22
Most recent labs reviewed.
Micro Results:
12/15/24 09:38 Blood Parasites Smear - Preliminary
Blood/Venous
12/15/24 09:38 Blood Culture - Pending
Blood/Venous
12/15/24 05:22 Blood Culture - Pending
Blood/Venous
12/14/24 CT c/a/p No acute abnormality identified in the chest, abdomen, or pelvis. Hepatic and renal cysts. Mild to moderate colonic fecal burden.
12/11/24 CXR: No radiographic evidence for pneumonia. Mild subpleural scarring in the right lung apex. Mild elevation of the right hemidiaphragm. Severe tortuosity of the descending thoracic aorta.
09/12/24 Brain MRI: There are bilateral foci of CSF signal intensity within the cerebellar hemispheres, the largest in the inferior right cerebellar hemisphere, as reported on recent MRI of the cervical spine. These are compatible with multiple foci
of old infarction.
Care Review
Plan reviewed with: Physician (Dr. Montilla)
--- NOTE | 2024-12-15 14:09 | W.PN.CARDCBS ---
Addendum entered and electronically signed by Alfie De La Garza MD 12/15/24 18:43:
74-year-old man admitted now after his third emergency department visit since December 07 for fever, nausea, weight loss, intermittent lightheadedness, now with newly diagnosed transient atrial fibrillation now back in sinus rhythm
PMH: H zoster, degenerative disc disease with neuropathic pain, hypercholesterolemia, history of traumatic brain injury x 2, cervical disc disease with neuropathy
Medications: Doxycycline 100 mg every 12 hours, MiraLAX, acetaminophen
131/79, pulse 104, respirate 24, 37.3, Tmax was 3 39.1 sats are 91%, says he is somewhat fatigued, still nauseated, no complaints, lungs are clear, regular rate rhythm with occasional extrasystoles no murmurs JVD okay, abdomen slightly distended but
overall benign, without clubbing cyanosis or edema
White count 3.6, hemoglobin 13, platelets are 43, left shift, BUN and creatinine are 25 and 1.1, potassium is 3.9,
Telemetry: Occasional brief runs of what could be atrial tach, PACs, resting heart rate is close to 100
Echo: EF 55-60%, no significant valvular heart disease
Impression:
Admitted with fever, nausea, weight loss, hypoxia 12/14/2024
Paroxysmal atrial fibrillation
Possible SIRS, no clear source of infection
Acute hypoxic respiratory insufficiency
Intermittent thrombocytopenia
Hyperlipidemia
Plan:
No further episodes of paroxysmal atrial fibrillation. However, he has ectopics and is relatively tachycardic. Will add metoprolol ER 25 mg daily.
Platelets have dropped to 43,000. Hold anticoagulation. [id number] score is 1, so reasonable to observe off anticoagulation.
His echo is unremarkable
Evaluation of protean symptoms, fever per primary team
Original Note:
Today's Communication / Plan
-
Start Toprol XL 25 mg daily now that BP improved
SR on tele
Impression / Plan
-
PCP: Yamel CARO at [facility]
Card: None prior to admission
Impression:
Admitted with fever and hypoxia 12/14/2024
ER visit for fatigue, fever and N/V 12/07/24
ER visit for fever and a dyne aphasia 12/11/2024
Possible SIRS, no clear source of infection
Acute hypoxic respiratory insufficiency
Intermittent thrombocytopenia
Newly diagnosed paroxysmal A-fib
Hyperlipidemia
Echo 12/14/2024: EF 55 to 60%, no WMA, no significant valve disease
Plan:
-Patient admitted with viral symptoms including fevers, diaphoresis and chills. ID is following and they have started empiric doxycycline while they wait for a Lyme Western blot to return along with additional Anaplasma and Ehrlichia labs. Tmax
102.4 �F overnight.
-From a cardiac standpoint, patient with newly diagnosed paroxysmal A-fib, telemetry reviewed by me shows SR since admission
-VS reviewed by me 12/15/2024 and BP improved to 131/79 so we will start Toprol XL 25 mg daily
-[id number] is 1 and no plans to start OAC due to intermittent thrombocytopenia.
-Hematology note reviewed by me, intermittent thrombocytopenia thought to be related to underlying illness, no evidence of platelet clumping on manual slide review.
HPI: Patient came to [facility] ER today for the third time since his initial visit back on 12/07/2024 with ongoing symptoms of lethargy, fever and N/V, cardiology is consulted because he appeared to be in A-fib on telemetry which was new. Patient saw his
PCP on 12/03/2024 for B/L LE pain described as a shooting pain and that he had had a similar pain in the past that was evaluated by orthopedics and that spine injections at that time seemed to help. Patient then went to [facility] ER on 12/07/2024 with
fatigue, diaphoresis, chills and N/V and reported a temperature at home of 102 �F. Workup in the ER on 12/07/2024 showed thrombocytopenia with a platelet count of 51,000, but no active bleeding, also LFTs were elevated and patient was treated for
suspected underlying viral illness, Monospot was negative, patient was discharged home with supportive care. Patient returned to [facility] ER on 12/11/2024 with ongoing leg pain and then also increased odynophagia and fever again. During that ER visit
Lyme assays were added to testing and patient was recommended CT but he chose not to pursue, also of note platelet count had improved to 215,000 and patient was discharged home again with supportive care. Patient returns to the ER again today with
ongoing N/V and feels exhausted. Patient again reporting fevers at home with a Tmax of 103 �F and was now agreeable to CT scan that was overall unremarkable, but patient being admitted with SIRS without clear origin and of note platelet count is
down again and this time is 84,000 prompting evaluation by hematology. Cardiology is now consulted for A-fib with RVR that appears to be new, although no ECG available for ER visits on 12/07/2024 and 12/11/2024, but HR is recorded at that time are
all lower than current HR suggesting a rhythm change between 12/11/2024 and 12/14/2024.
Progress Note - Project Development Coordinator
Subjective
Date of Service: December 15, 2024
No palpitations, no significant symptomatic improvement since admission
Objective
Labs:
12/15/24 05:22
12/15/24 05:22
Labs
Hgb 13.0 g/dL (13.0-18.0) 12/15/24 05:22
Hct 38.7 % (39.0-52.0) L 12/15/24 05:22
Plt Count 43 10^3/uL (130-400) L D 12/15/24 05:22
Sodium 140 mmol/L (135-145) 12/15/24 05:22
Potassium 3.9 mmol/L (3.5-5.1) 12/15/24 05:22
BUN 25 mg/dl (9-20) H 12/15/24 05:22
Creatinine 1.1 mg/dL (0.7-1.3) 12/15/24 05:22
Glucose 135 mg/dl (70-99) H 12/15/24 05:22
Troponins
12/14/24 12/14/24 12/15/24
10:15 21:05 02:58
Troponin I < 0.012 < 0.012 < 0.012
12/15/24
09:38
Troponin I < 0.012
Vital Signs and I&O:
Vital Signs
Temp Pulse Resp BP Pulse Ox
99.8 F 104 20 136/76 93
12/15/24 11:15 12/15/24 11:21 12/15/24 11:15 12/15/24 11:21 12/15/24 11:15
Vital Signs
Temp Pulse Resp BP Pulse Ox
99.8 F 104 20 136/76 93
12/15/24 11:15 12/15/24 11:21 12/15/24 11:15 12/15/24 11:21 12/15/24 11:15
Physical Exam
Physical Exam
GEN: NAD.
LUNGS: 2 L NC. No wheeze
CV: SR on tele.
[2024-12-15 15:00] VITALS: BP 122/78
[2024-12-15 15:05] LABS: HIV Combo Negative (Negative)
--- NOTE | 2024-12-15 15:55 | CM ---
ALEXANDER met with Maximiliano to complete IA. He lives with his in a 2 story home with 3 entry steps; bedroom and bathroom are on the second level. Pt is typically (I) amb and adls, drives in the community.
VN services discussed as an option in the event pt is weaker after his illness and could benefit from therapy at home. We will discuss this again as he nears discharge.
Plan: Discharge to home anticipated. Watch for VN needs.
[2024-12-15 19:00] VITALS: BP 120/81
--- NOTE | 2024-12-15 21:35 | PTCARENOTE ---
Oral care was not performed on patient because he stated that it was his preference to do it in the morning.
[2024-12-15 23:00] VITALS: BP 140/87
[2024-12-16 03:00] VITALS: BP 136/84
[2024-12-16] MEDS: NSS 1000 IV (03:55)
[2024-12-16 07:00] VITALS: BP 136/78
--- NOTE | 2024-12-16 08:03 | W.PN.ONC2 ---
Today's Communication / Plan
-
Monitor CBC/platelet count.
Impression
Impression
Febrile illness
Intractable nausea
Consumptive thrombocytopenia
Transient atrial fibrillation
Plan
Plan
At this point, patient appears to have an possibly viral or tickborne illness.
Babesiosis smear was negative for parasites.
I suspect thrombocytopenia is consumptive and should be self-limited. Currently no bruising or bleeding and no indication for transfusion unless patient develops bleeding or needs invasive procedures requiring platelet support.
Appreciate infectious disease consultation.
CT scan of the chest/abdomen/pelvis reviewed and negative for any evidence of underlying lymphoma or neoplasia to explain symptoms.
Smear does not appear to have any evidence of platelet clumping (no evidence of pseudothrombocytopenia)
From our perspective, nothing to do other than supportive care with consultative help as you are doing.
Subjective/Objective
Chief Complaint
ACS heme-onc progress note
Subjective
Fevers night sweats have resolved almost 3 days ago. He still has aching nausea which is persistent and is current chief complaint. He denies bleeding.
Vital Signs:
Vital Signs
Temp Pulse Resp BP Pulse Ox
98.4 F 90 17 136/78 93
12/16/24 07:00 12/16/24 07:00 12/16/24 07:00 12/16/24 07:00 12/16/24 07:00
Lab Results:
Laboratory Data
WBC 3.6 10^3/uL (4.8-10.8) L 12/15/24 05:22
Hgb 13.0 g/dL (13.0-18.0) 12/15/24 05:22
Plt Count 43 10^3/uL (130-400) L D 12/15/24 05:22
eGFR > 60.00 12/15/24 05:22
Physical Exam
Cardiology: Normal Sinus Rhythm, S1 and S2
Pulmonary: Clear
GI: Soft and Normal Bowel Sounds; No Distended
Extremities: No C/C/E
[2024-12-16] MEDS: COMPAZINE 5 MG IV ×2 (08:22→20:18)
[2024-12-16] MEDS: VIBRAMYCIN 100 MG PO ×2 (08:24→20:15)
[2024-12-16] MEDS: TOPROL XL 25 MG PO ×2 (08:24→20:15)
--- NOTE | 2024-12-16 08:26 | W.PN.HOSP.TC ---
Today's Communication/Plan
-
see plan
Assessment / Plan
Assessment / Plan
Gen: NAD, Awake and alert
Eyes: EOMI, PERRLA, no scleral icterus.
Neck: supple.
CV: RRR, +S1/S2, no m/r/g.
Resp: CTAB anteriorly, no rales, wheezes, or rhonchi.
Abd: +BS, soft, NT, ND
Skin: No rashes.
Neuro: CN 2-12 intact, non-focal.
Psych: Normal mood and affect.
12/15/24 05:22 Blood/Venous Blood Culture - Preliminary
No Growth in 24 hours- Final report to follow
12/15/24 09:38 Blood/Venous Blood Parasites Smear - Final
CT C/A/P: No acute abnormality identified in the chest, abdomen, or pelvis. Hepatic and renal cysts. Mild to moderate colonic fecal burden.
Echo: EF 55-60%. No RWMA. No significant valvular disease. No prior study available for comparison.
Fever, N/V, diaphoresis, chill, mildly elevated LFTs:
-12/07/24 first ER visit: Had fatigue, diaphoresis, chills, N/V, mildly elevated LFTs, no abdominal pain, fever 102 F. Improved with Zofran/IVFs, thought to be a viral illness, discharged home.
-12/11/24 second ER visit: had persistent fatigue/N. No abdominal pain, diarrhea, or new cough.
-12/14/24 third ER visit: fever 103 F
-imaging above
-febrile initially, now resolved
-U/A unremarkable
-monospot NEG
-BCxs 12/11/24 NGTD, follow BCxs 12/15/24, Blood parasite smear NEG
-leukopenia with L-shift, also thrombocytopenia
-ID/heme following
-follow EBV/HIV/QTB, Anaplasma/Ehrlichia PCR, Babesia smear, Lyme WB
-started on empiric Doxy by ID 12/15/24AM pending results
Thrombocytopenia:
-heme following, discussed with heme
-suspect thrombocytopenia is consumptive and related to likely tick-borne illness
-appears to have nadired, improving
-also pancytopenia
Acute hypoxemic respiratory insufficiency:
-echo unremarkable
-check CXR
-stop IVFs
-check CXR and proBNP
PAF (new Dx):
-cards following
-echo above
-[id number] = 1, no AC regardless considering worsening thrombocytopenia
Pt's updated at bedside. Discussed with RN.
FULL/SCDs
Total time spent on today's encounter was 51 minutes which included time spent in counseling the patient/family regarding diagnosis and treatment plan as listed above, goals of care, and symptom management. Case was discussed with nursing staff,
specialists, and care coordinators/case management. All labs and imaging personally reviewed by me. Remainder the time spent in detailed review of previous records, lab data, imaging, and other medical provider documentation.
Anticipated Discharge: Within 24 hours
Subjective/Interval History
-
Date of Service: December 16, 2024
No new complaints.
Objective Data
-
Vital Signs:
Vital Signs
Temp Pulse Resp BP Pulse Ox
98.4 F 90 17 136/78 93
12/16/24 07:00 12/16/24 07:00 12/16/24 07:00 12/16/24 07:00 12/16/24 07:00
I&O
12/15/24 12/16/24 12/17/24
06:59 06:59 06:59
Intake Total 480 / 960 480 / 480
Output Total 100 / 100
Balance 380 / 860 480 / 480
[2024-12-16 08:50] LABS: Hemoglobin 11.9 g/dL (13.0-18.0); Mean Corpuscular Hgb 31.2 pg (27.0-31.0); Mean Corpuscular Volume 91.9 fL (80.0-94.0); Mean Platelet Volume 12.4 fL (7.4-10.4); Platelet Count 53 10^3/uL (130-400); Red Blood Cell Count 3.81 10^6/uL (4.70-6.10); Red Cell Dist. Width 14.5 % (11.5-14.5); White Blood Cell Count 4.7 10^3/uL (4.8-10.8)
[2024-12-16 09:31] LABS: Blood Urea Nitrogen 28 mg/dl (9-20); Calcium 8.1 mg/dl (8.4-10.2); Carbon Dioxide 19 mmol/L (22-30); Chloride 114 mmol/L (98-107); Estimated Creatinine Clearance 77 ml/min; Glucose 125 mg/dl (70-99); Sodium 142 mmol/L (135-145); eGFR > 60.00
[2024-12-16 11:21] VITALS: BP 136/90
[2024-12-16 11:22] LABS: NT-proBNP 732 pg/ml
--- NOTE | 2024-12-16 12:40 | W.PN.ID1 ---
Date of Service
Date of Service: December 16, 2024
Today's Communication
Continue doxycycline.
Follow temps/labs.
Assessment / Plan
# Intractable nausea
# Fever, nightsweats, chills
# Fatigue
# thrombocytopenia. Now pancytopenia
# Transient afib
# Recent Elevated LFT's improving
-CT c/a/p neg
-UA neg
- Bcx x 2 neg to date.
- Follow repeat blood cx's
- TTE no valvular absnormalities
- HIV neg
- Babesia smear - no parasite
- EBV serology panel, QTB, pending
- Anaplasma/Erhrlichia PCR pending
- Lyme WB pending.
- Of note, + exposure to mice/rodents droppings
To consider leptospirosis, Streptobacillus moniliformis, etc
- Cpntinie empiric doxycycline 100mg po bid.
- Trend temps, CBC
Chief Complaint
-: Fever
Subjective / Review of Systems
No chills/sweats last night.
Still very fatigue.
Nausea minimally better.
Vital Signs / Physical Exam
Vital Signs
Vital Signs
Temp Pulse Resp BP Pulse Ox
97.7 F 121 17 136/90 93
12/16/24 11:21 12/16/24 11:21 12/16/24 11:21 12/16/24 11:21 12/16/24 12:07
Physical Exam
Eyes: No Conjunctival Hemorrhage and Sclera Anicteric
Cardiovascular: S1/S2 and Other (tachycardic)
Pulmonary: Clear
Gastrointestinal: Soft, Non Tender, Non Distended and Normal Bowel Sounds
Genito-Urinary: Negative CVA Tenderness
Neurological: AO x 3
Objective Data
Lab Data
Lab Results
12/16/24 08:37
12/16/24 08:37
Estimated Creat Clear 77 ml/min 12/16/24 08:37
Total Bilirubin 1.2 mg/dl (0.2-1.3) 12/15/24 05:22
AST 44 U/L (17-59) 12/15/24 05:22
ALT 44 U/L (0-50) 12/15/24 05:22
Alkaline Phosphatase 80 U/L (38-126) 12/15/24 05:22
Most recent labs reviewed.
Micro Results:
12/15/24 09:38 Blood Culture - Preliminary
Blood/Venous No Growth in 24 hours- Final report to follow
12/15/24 05:22 Blood Culture - Preliminary
Blood/Venous No Growth in 24 hours- Final report to follow
12/15/24 09:38 Blood Parasites Smear - Final
Blood/Venous
12/14/24 CT c/a/p No acute abnormality identified in the chest, abdomen, or pelvis. Hepatic and renal cysts. Mild to moderate colonic fecal burden.
12/11/24 CXR: No radiographic evidence for pneumonia. Mild subpleural scarring in the right lung apex. Mild elevation of the right hemidiaphragm. Severe tortuosity of the descending thoracic aorta.
09/12/24 Brain MRI: There are bilateral foci of CSF signal intensity within the cerebellar hemispheres, the largest in the inferior right cerebellar hemisphere, as reported on recent MRI of the cervical spine. These are compatible with multiple foci
of old infarction.
--- NOTE | 2024-12-16 14:33 | W.PN.CARDCBS ---
Addendum entered and electronically signed by Layton Rubi MD 12/16/24 15:28:
I saw and examined the patient.
The Wire Machine Operator's note was reviewed and I agree with the note.
Comment:
GEN: No distress, awake, Ox3
HEENT: supple, anicteric, mmm
LUNGS: CTA, no wheezes/rales
CV: Irreg, S1/S2, 1/6 syst LSB, no gallop
ABD: soft, BS+, NT/ND
EXT: No edema
NEURO: Gross non-focal
SKIN: No rash
Plan:
Back in atrial fibrillation today with modestly elevated rates. Still feels poorly. Etiology of fevers remains unclear.
Increase Toprol to 25 mg p.o. twice daily. Hemoglobin at 11.9 and platelet count of 53,000.
Would hold off on anticoagulation for now with marked thrombocytopenia. Once he recovers from this episode we will eventually consider initiation of Eliquis
LVEF preserved.
Original Note:
Today's Communication / Plan
-
No evidence of acute HF
Recurrence of A-fib, will increase Toprol-XL, orders placed
Impression / Plan
-
PCP: Yamel CARO at [facility] primary [facility]
Card: None prior to admission
Impression:
Admitted with fever and hypoxia 12/14/2024
ER visit for fatigue, fever and N/V 12/07/24
ER visit for fever 12/11/2024
Possible SIRS, no clear source of infection
Acute hypoxic respiratory insufficiency
Intermittent thrombocytopenia
Consumptive thrombocytopenia due to viral or tickborne
Newly diagnosed paroxysmal A-fib
spontaneously converted to SR in the ER 12/14/24
recurrence of Afib 12/16/24
Hyperlipidemia
Acute hypoxic respiratory insufficiency
Echo 12/14/2024: EF 55 to 60%, no WMA, no significant valve disease
Plan:
-Patient admitted with viral symptoms including fevers, diaphoresis and chills. ID is following and they have started empiric doxycycline while they wait for a Lyme Western blot to return along with additional Anaplasma and Ehrlichia labs. Patient
had CT scan of the chest, abdomen and pelvis that was unremarkable and blood cultures without growth.
-Hematology note reviewed by me 12/16/2024, intermittent thrombocytopenia thought to be consumptive thrombocytopenia related to underlying illness, no evidence of platelet clumping on manual slide review.
-Interestingly, patient remains hypoxic on 2 L NC. proBNP 732 which is lower than the admission level of 1320. No evidence to suggest acute HF. EF was preserved by echo.
-From a cardiac standpoint, patient with newly diagnosed paroxysmal A-fib in the ER on admission that spontaneously converted to SR. He was noted to have recurrence of A-fib starting on 12/16/2024.
-Patient was started on Toprol XL 25 mg daily this admission and dose increased to BID on 12/16/2024, orders placed by cardiology
-[id number] is 1 and no plans to start OAC due to intermittent thrombocytopenia.
HPI: Patient came to [facility] ER today for the third time since his initial visit back on 12/07/2024 with ongoing symptoms of lethargy, fever and N/V, cardiology is consulted because he appeared to be in A-fib on telemetry which was new. Patient saw his
PCP on 12/03/2024 for B/L LE pain described as a shooting pain and that he had had a similar pain in the past that was evaluated by orthopedics and that spine injections at that time seemed to help. Patient then went to [facility] ER on 12/07/2024 with
fatigue, diaphoresis, chills and N/V and reported a temperature at home of 102 �F. Workup in the ER on 12/07/2024 showed thrombocytopenia with a platelet count of 51,000, but no active bleeding, also LFTs were elevated and patient was treated for
suspected underlying viral illness, Monospot was negative, patient was discharged home with supportive care. Patient returned to [facility] ER on 12/11/2024 with ongoing leg pain and then also increased odynophagia and fever again. During that ER visit
Lyme assays were added to testing and patient was recommended CT but he chose not to pursue, also of note platelet count had improved to 215,000 and patient was discharged home again with supportive care. Patient returns to the ER again today with
ongoing N/V and feels exhausted. Patient again reporting fevers at home with a Tmax of 103 �F and was now agreeable to CT scan that was overall unremarkable, but patient being admitted with SIRS without clear origin and of note platelet count is
down again and this time is 84,000 prompting evaluation by hematology. Cardiology is now consulted for A-fib with RVR that appears to be new, although no ECG available for ER visits on 12/07/2024 and 12/11/2024, but HR is recorded at that time are
all lower than current HR suggesting a rhythm change between 12/11/2024 and 12/14/2024.
Progress Note - Helmet Coverer
Subjective
Date of Service: December 16, 2024
No symptomatic improvement, no palpitations
Objective
Labs:
12/16/24 08:37
12/16/24 08:37
Labs
Hgb 11.9 g/dL (13.0-18.0) L 12/16/24 08:37
Hct 35.0 % (39.0-52.0) L 12/16/24 08:37
Plt Count 53 10^3/uL (130-400) L D 12/16/24 08:37
Sodium 142 mmol/L (135-145) 12/16/24 08:37
Potassium 4.0 mmol/L (3.5-5.1) 12/16/24 08:37
BUN 28 mg/dl (9-20) H 12/16/24 08:37
Creatinine 0.8 mg/dL (0.7-1.3) 12/16/24 08:37
Glucose 125 mg/dl (70-99) H 12/16/24 08:37
Troponins
12/14/24 12/14/24 12/15/24
10:15 21:05 02:58
Troponin I < 0.012 < 0.012 < 0.012
12/15/24
09:38
Troponin I < 0.012
Vital Signs and I&O:
Vital Signs
Temp Pulse Resp BP Pulse Ox
97.7 F 121 17 136/90 93
12/16/24 11:21 12/16/24 11:21 12/16/24 11:21 12/16/24 11:21 12/16/24 12:07
Vital Signs
Temp Pulse Resp BP Pulse Ox
97.7 F 121 17 136/90 93
12/16/24 11:21 12/16/24 11:21 12/16/24 11:21 12/16/24 11:21 12/16/24 12:07
Intake & Output
12/14/24 12/15/24 12/16/24 12/17/24
06:59 06:59 06:59 06:59
Intake Total 480 / 960 480 / 480
Output Total 100 / 100
Balance 380 / 860 480 / 480
Physical Exam
Physical Exam
GEN: NAD.
LUNGS: 2 L NC. No wheeze
CV: SR on tele.
[2024-12-16 15:00] VITALS: BP 138/80
[2024-12-16 19:00] VITALS: BP 125/80
--- NOTE | 2024-12-16 21:30 | PTCARENOTE ---
Oral care was not performed on patient because he stated that it was his preference to brush his teeth in the morning.
[2024-12-16 23:00] VITALS: BP 147/89
[2024-12-17] VITALS (8 sets, daily range): BP systolic 137–168; BP diastolic 79–97; PULSE 90; O2SAT 97
[2024-12-17 03:21] LABS: EBV-VCA IgM Antibodies >160.0 U/mL (0.0-43.9)
--- NOTE | 2024-12-17 03:34 | PTCARENOTE ---
Pt's Ebstein Singh virus panel came back very elevated (see labs). STRUCTURAL STEEL ERECTOR notified, no new orders. Will pass on to dayshift RN. Plan of care of ongoing.
[2024-12-17 05:41] LABS: Hematocrit 33.9 % (39.0-52.0); Hemoglobin 11.5 g/dL (13.0-18.0); Mean Corp Hgb Conc. 33.9 g/dL (33.0-37.0); Mean Corpuscular Hgb 31.3 pg (27.0-31.0); Mean Corpuscular Volume 92.4 fL (80.0-94.0); Mean Platelet Volume 11.2 fL (7.4-10.4); Platelet Count 55 10^3/uL (130-400); Red Blood Cell Count 3.67 10^6/uL (4.70-6.10); Red Cell Dist. Width 14.7 % (11.5-14.5); White Blood Cell Count 7.6 10^3/uL (4.8-10.8)
[2024-12-17 06:23] LABS: Blood Urea Nitrogen 30 mg/dl (9-20); Calcium 8.4 mg/dl (8.4-10.2); Carbon Dioxide 24 mmol/L (22-30); Chloride 114 mmol/L (98-107); Estimated Creatinine Clearance 77 ml/min; Glucose 104 mg/dl (70-99); Potassium 3.8 mmol/L (3.5-5.1); Sodium 143 mmol/L (135-145); eGFR > 60.00
--- NOTE | 2024-12-17 07:52 | W.PN.HOSP.TC ---
Today's Communication/Plan
-
see plan
Assessment / Plan
Assessment / Plan
Gen: NAD, Awake and alert
Eyes: EOMI, PERRLA, no scleral icterus.
Neck: supple.
CV: remains RRR, +S1/S2, no m/r/g.
Resp: remains CTAB anteriorly, no rales, wheezes, or rhonchi.
Abd: remains +BS, soft, NT, ND
Skin: No rashes.
Neuro: CN 2-12 intact, non-focal.
Psych: Normal mood and affect.
12/15/24 05:22 Blood/Venous Blood Culture - Preliminary
No Growth in 48 hours- Final report to follow
12/15/24 09:38 Blood/Venous Blood Culture - Preliminary
No Growth in 24 hours- Final report to follow
12/15/24 09:38 Blood/Venous Blood Parasites Smear - Final
CT C/A/P: No acute abnormality identified in the chest, abdomen, or pelvis. Hepatic and renal cysts. Mild to moderate colonic fecal burden.
Echo: EF 55-60%. No RWMA. No significant valvular disease. No prior study available for comparison.
CXR 12/16/24: Increased bibasilar opacities favored to represent atelectasis
Fever, N/V, diaphoresis, chill, mildly elevated LFTs:
-12/07/24 first ER visit: Had fatigue, diaphoresis, chills, N/V, mildly elevated LFTs, no abdominal pain, fever 102 F. Improved with Zofran/IVFs, thought to be a viral illness, discharged home.
-12/11/24 second ER visit: had persistent fatigue/N. No abdominal pain, diarrhea, or new cough.
-12/14/24 third ER visit: fever 103 F
-imaging above
-febrile initially, now resolved
-U/A unremarkable
-monospot NEG
-BCxs 12/11/24 NGTD, BCxs 12/15/24 NGTD, Blood parasite smear NEG
-leukopenia with L-shift, also thrombocytopenia
-ID/heme following
-HIV NEG
-EBV IgG/IgM/early Ag/Nuclear Ag POS
-follow QTB, Anaplasma/Ehrlichia PCR, Lyme WB
-started on empiric Doxy by ID 12/15/24AM pending results
Thrombocytopenia:
-heme saw in c/s
-suspect thrombocytopenia is consumptive and related to likely tick-borne illness
-appears to have nadired, improving
-also briefly with pancytopenia, now WBC normalized
Acute hypoxemic respiratory insufficiency:
-echo unremarkable
-CXR with atelectasis
-proBNP 732
-IVFs stopped 12/16/24
-encourage ambulation, IS
PAF (new Dx):
-cards following
-echo above
-CNLTS-Hxci-0 = 1, no AC regardless considering worsening thrombocytopenia
Pt's updated at bedside.
FULL/SCDs
Total time spent on today's encounter was 50 minutes which included time spent in counseling the patient/family regarding diagnosis and treatment plan as listed above, goals of care, and symptom management. Case was discussed with nursing staff,
specialists, and care coordinators/case management. All labs and imaging personally reviewed by me. Remainder the time spent in detailed review of previous records, lab data, imaging, and other medical provider documentation.
Anticipated Discharge: 24 - 48 hours
Subjective/Interval History
-
Date of Service: December 17, 2024
Pt c/o fatigue and nausea.
Objective Data
-
Labs:
Laboratory Results
12/17/24
05:16
WBC 7.6
Hgb 11.5 L
Hct 33.9 L
Plt Count 55 L
Sodium 143
Potassium 3.8
Chloride 114 H
Carbon Dioxide 24
BUN 30 H
Creatinine 0.8
Glucose 104 H
Calcium 8.4
Vital Signs:
Vital Signs
Temp Pulse Resp BP Pulse Ox
98.0 F 81 14 141/85 93
12/17/24 03:00 12/17/24 03:00 12/17/24 03:00 12/17/24 03:00 12/17/24 03:00
I&O
12/16/24 12/17/24 12/18/24
06:59 06:59 06:59
Intake Total 480 / 960 680 / 680 240 / 240
Output Total 100 / 100 600 / 600
Balance 380 / 860 80 / 80 240 / 240
[2024-12-17] MEDS: COMPAZINE 5 MG IV (08:36)
[2024-12-17] MEDS: TOPROL XL 25 MG PO ×2 (08:37→21:04)
[2024-12-17] MEDS: DESENEX/MITRAZOL/ZEASORB 1 APPLIC TOPICAL ×2 (08:37→21:05)
[2024-12-17] MEDS: VIBRAMYCIN 100 MG PO ×2 (08:37→21:04)
--- NOTE | 2024-12-17 10:10 | W.PN.ID1 ---
Date of Service
Date of Service: December 17, 2024
Today's Communication
Continue doxycycline for now.
Assessment / Plan
# Intractable nausea
# Fever, nightsweats, chills- resolving
# Profound Fatigue
# thrombocytopenia
# Transient afib
# Recent Elevated LFT's improving
-CT c/a/p neg
-UA neg
- Bcx x 4 neg to date.
- TTE no valvular abnormalities
- HIV neg
- Babesia smear - no parasite
- QTB, pending
- Anaplasma/Erhrlichia PCR pending
- Lyme pending.
- Of note, + exposure to mice/rodents droppings
To consider leptospirosis, Streptobacillus moniliformis, etc
- Continue empiric doxycycline 100mg po bid (d3).
- Trend CBC
- EBV serology panel suggests recent past EBV infection.
Probably unlikely HLH (hemophagocytic lymphohistocytosis) source of pancytopenia; LFT's resolved, no splenomegaly.
Check ferritin, LFT's, EBV PCR in am.
Chief Complaint
-: Fever
Subjective / Review of Systems
c/o persistent hiccups/chest vibration sensation.
spitting out saliva
Appetite remains poor due to nausea.
Very fatigue.
No fever overnight.
Vital Signs / Physical Exam
Vital Signs
Vital Signs
Temp Pulse Resp BP Pulse Ox
98.7 F 84 18 168/97 95
12/17/24 07:00 12/17/24 08:37 12/17/24 07:00 12/17/24 08:37 12/17/24 09:37
Physical Exam
Constitutional: Acutely Ill
Eyes: No Conjunctival Hemorrhage and Sclera Anicteric
Cardiovascular: Regular Rate and S1/S2
Pulmonary: Clear
Gastrointestinal: Soft, Non Tender, Non Distended and Normal Bowel Sounds
Genito-Urinary: Negative CVA Tenderness
Extremities: Negative Edema
Neurological: AO x 3
Objective Data
Lab Data
Lab Results
12/17/24 05:16
12/17/24 05:16
Estimated Creat Clear 77 ml/min 12/17/24 05:16
Total Bilirubin 1.2 mg/dl (0.2-1.3) 12/15/24 05:22
AST 44 U/L (17-59) 12/15/24 05:22
ALT 44 U/L (0-50) 12/15/24 05:22
Alkaline Phosphatase 80 U/L (38-126) 12/15/24 05:22
Most recent labs reviewed.
Micro Results:
12/15/24 09:38 Blood Culture - Preliminary
Blood/Venous No Growth in 48 hours- Final report to follow
12/15/24 05:22 Blood Culture - Preliminary
Blood/Venous No Growth in 48 hours- Final report to follow
12/15/24 09:38 Blood Parasites Smear - Final
Blood/Venous
12/16/24 CXR: There is increased bibasilar opacities favored to represent atelectasis.
12/14/24 CT c/a/p No acute abnormality identified in the chest, abdomen, or pelvis. Hepatic and renal cysts. Mild to moderate colonic fecal burden.
12/11/24 CXR: No radiographic evidence for pneumonia. Mild subpleural scarring in the right lung apex. Mild elevation of the right hemidiaphragm. Severe tortuosity of the descending thoracic aorta.
09/12/24 Brain MRI: There are bilateral foci of CSF signal intensity within the cerebellar hemispheres, the largest in the inferior right cerebellar hemisphere, as reported on recent MRI of the cervical spine. These are compatible with multiple foci
of old infarction.
Care Review
Plan reviewed with: Physician (Dr. Montilla)
[2024-12-17 12:04] LABS: Quantiferon Mitogen minus NIL 5.14 IU/mL; Quantiferon NIL 4.79 IU/mL; Quantiferon Plus TB2 minus NIL 0.01 IU/mL (<=0.34); Quantiferon TB Gold Plus Negative (Negative)
--- NOTE | 2024-12-17 13:21 | W.PN.CARDCBS ---
Addendum entered and electronically signed by Rocky Chan MD 12/17/24 16:11:
I saw and examined the patient.
The Salesperson Sewing Machines's note was reviewed and I agree with the note.
Comment: Briefly, 74-year-old man presenting with fever, nausea and vomiting and found to be in atrial fibrillation which is a new diagnosis for him.
He spontaneously converted back to sinus rhythm yesterday afternoon and has not had recurrence of A-fib on my review of telemetry
Echo here with normal LV function and no significant valvular pathology
Started on metoprolol for rate control, would continue on discharge
CHADS2 Vasc of 1 for age. With thrombocytopenia, platelet count as low as 43, will not start anticoagulation at this time.
We will sign off, please recall as needed
Outpatient follow-up has been arranged
Original Note:
Today's Communication / Plan
-
Back NSR
Continue higher dose Toprol XL 25 mg BID
No OAC
Impression / Plan
-
PCP: Yamel CARO at [facility] primary care [place]
Card: None prior to admission
Impression:
Admitted with fever and hypoxia 12/14/2024
ER visit for fatigue, fever and N/V 12/07/24
ER visit for fever 12/11/2024
Possible SIRS, no clear source of infection
Acute hypoxic respiratory insufficiency
Intermittent thrombocytopenia
Consumptive thrombocytopenia due to viral or tickborne
Newly diagnosed paroxysmal A-fib
spontaneously converted to SR in the ER 12/14/24
recurrence of Afib 12/16/24
Hyperlipidemia
Acute hypoxic respiratory insufficiency
Echo 12/14/2024: EF 55 to 60%, no WMA, no significant valve disease
Plan:
-Patient admitted with viral symptoms including fevers, diaphoresis and chills. ID is following and they have started empiric doxycycline while they wait for a Lyme Western blot to return along with additional Anaplasma and Ehrlichia labs. Patient
had CT scan of the chest, abdomen and pelvis that was unremarkable and blood cultures without growth.
-Telemetry reviewed by me 12/17/2024 and patient is back in SR.
-Continue increased dose of Toprol-XL 25 mg BID which is new this admission
-[id number] is 1 and no plans to start OAC due to intermittent thrombocytopenia.
HPI: Patient came to [facility] ER today for the third time since his initial visit back on 12/07/2024 with ongoing symptoms of lethargy, fever and N/V, cardiology is consulted because he appeared to be in A-fib on telemetry which was new. Patient saw his
PCP on 12/03/2024 for B/L LE pain described as a shooting pain and that he had had a similar pain in the past that was evaluated by orthopedics and that spine injections at that time seemed to help. Patient then went to [facility] ER on 12/07/2024 with
fatigue, diaphoresis, chills and N/V and reported a temperature at home of 102 �F. Workup in the ER on 12/07/2024 showed thrombocytopenia with a platelet count of 51,000, but no active bleeding, also LFTs were elevated and patient was treated for
suspected underlying viral illness, Monospot was negative, patient was discharged home with supportive care. Patient returned to [facility] ER on 12/11/2024 with ongoing leg pain and then also increased odynophagia and fever again. During that ER visit
Lyme assays were added to testing and patient was recommended CT but he chose not to pursue, also of note platelet count had improved to 215,000 and patient was discharged home again with supportive care. Patient returns to the ER again today with
ongoing N/V and feels exhausted. Patient again reporting fevers at home with a Tmax of 103 �F and was now agreeable to CT scan that was overall unremarkable, but patient being admitted with SIRS without clear origin and of note platelet count is
down again and this time is 84,000 prompting evaluation by hematology. Cardiology is now consulted for A-fib with RVR that appears to be new, although no ECG available for ER visits on 12/07/2024 and 12/11/2024, but HR is recorded at that time are
all lower than current HR suggesting a rhythm change between 12/11/2024 and 12/14/2024.
Progress Note - Ventilation Worker
Subjective
Date of Service: December 17, 2024
He does not feel better since admission
Objective
Labs:
12/17/24 05:16
12/17/24 05:16
Labs
Hgb 11.5 g/dL (13.0-18.0) L 12/17/24 05:16
Hct 33.9 % (39.0-52.0) L 12/17/24 05:16
Plt Count 55 10^3/uL (130-400) L 12/17/24 05:16
Sodium 143 mmol/L (135-145) 12/17/24 05:16
Potassium 3.8 mmol/L (3.5-5.1) 12/17/24 05:16
BUN 30 mg/dl (9-20) H 12/17/24 05:16
Creatinine 0.8 mg/dL (0.7-1.3) 12/17/24 05:16
Glucose 104 mg/dl (70-99) H 12/17/24 05:16
Troponins
12/14/24 12/15/24 12/15/24
21:05 02:58 09:38
Troponin I < 0.012 < 0.012 < 0.012
Vital Signs and I&O:
Vital Signs
Temp Pulse Resp BP Pulse Ox
97.7 F 88 17 147/89 96
12/17/24 11:44 12/17/24 11:44 12/17/24 11:44 12/17/24 11:44 12/17/24 11:44
Vital Signs
Temp Pulse Resp BP Pulse Ox
97.7 F 88 17 147/89 96
12/17/24 11:44 12/17/24 11:44 12/17/24 11:44 12/17/24 11:44 12/17/24 11:44
Intake & Output
12/15/24 12/16/24 12/17/24 12/18/24
06:59 06:59 06:59 06:59
Intake Total 480 / 960 680 / 680 240 / 240
Output Total 100 / 100 600 / 600
Balance 380 / 860 80 / 80 240 / 240
Physical Exam
Physical Exam
GEN: NAD.
LUNGS: 2 L NC. No wheeze
CV: SR on tele.
[2024-12-17 13:28] LABS: Lyme Antibody Screen, EIA Equivocal (Negative)
[2024-12-18 00:29] LABS: Anaplasma phagocytophilum PCR Detected; Ehrlichia chaffeensis by PCR Not Detected; Ehrlichia ewingii/canis by PCR Not Detected; Ehrlichia muris-like by PCR Not Detected
[2024-12-18 03:10] VITALS: BP 144/84
[2024-12-18 06:07] LABS: ALT (SGPT) 87 U/L (0-50); AST (SGOT) 89 U/L (17-59); Albumin 2.8 g/dl (3.5-5.0); Alkaline Phosphatase 71 U/L (38-126); Blood Urea Nitrogen 27 mg/dl (9-20); Calcium 8.2 mg/dl (8.4-10.2); Carbon Dioxide 24 mmol/L (22-30); Chloride 114 mmol/L (98-107); Estimated Creatinine Clearance 77 ml/min; Glucose 108 mg/dl (70-99); Potassium 3.6 mmol/L (3.5-5.1); Sodium 142 mmol/L (135-145); Total Bilirubin 1.1 mg/dl (0.2-1.3); Total Protein 5.6 g/dl (6.3-8.2); eGFR > 60.00
[2024-12-18 07:48] VITALS: BP 153/88
--- NOTE | 2024-12-18 08:02 | W.PN.HOSP.TC ---
Addendum entered and electronically signed by Papa Montilla MD 12/18/24 13:17:
Total time spent on d/c = 39 min. This included today's physical exam, progress note, review of laboratory and diagnostic data, preparation of discharge documents and prescriptions, and discussions about the pt's hospital course and discharge plan
with the patient and other medical genetics director involved in the patient's care.
Original Note:
Today's Communication/Plan
-
d/c
Assessment / Plan
Assessment / Plan
Gen: NAD, Awake and alert
Eyes: EOMI, PERRLA, no scleral icterus.
Neck: supple.
CV: continues to remain RRR, +S1/S2, no m/r/g.
Resp: continues to remain CTAB anteriorly, no rales, wheezes, or rhonchi.
Abd: continues to remain +BS, soft, NT, ND
Skin: No rashes.
Neuro: CN 2-12 intact, non-focal.
Psych: Normal mood and affect.
12/15/24 05:22 Blood/Venous Blood Culture - Preliminary
No Growth in 72 hours- Final report to follow
12/15/24 09:38 Blood/Venous Blood Culture - Preliminary
No Growth in 48 hours- Final report to follow
12/15/24 09:38 Blood/Venous Blood Parasites Smear - Final
CT C/A/P: No acute abnormality identified in the chest, abdomen, or pelvis. Hepatic and renal cysts. Mild to moderate colonic fecal burden.
Echo: EF 55-60%. No RWMA. No significant valvular disease. No prior study available for comparison.
CXR 12/16/24: Increased bibasilar opacities favored to represent atelectasis
Fever, N/V, diaphoresis, chill, mildly elevated LFTs:
-12/07/24 first ER visit: Had fatigue, diaphoresis, chills, N/V, mildly elevated LFTs, no abdominal pain, fever 102 F. Improved with Zofran/IVFs, thought to be a viral illness, discharged home.
-12/11/24 second ER visit: had persistent fatigue/N. No abdominal pain, diarrhea, or new cough.
-12/14/24 third ER visit: fever 103 F
-imaging above
-febrile initially, now resolved
-U/A unremarkable
-monospot NEG
-BCxs 12/11/24 NGTD, BCxs 12/15/24 NGTD, Blood parasite smear NEG
-leukopenia with L-shift, also thrombocytopenia
-ID/heme following
-HIV/QTB NEG
-Ehrlichia PCR NEG
-EBV IgG/IgM/early Ag/Nuclear Ag POS (past infection)
-Anaplasma phagocytophilum POS
-follow QTB Lyme WB
-started on empiric Doxy 12/15/24AM
Thrombocytopenia:
-heme saw in c/s
-suspect thrombocytopenia is consumptive and related to likely tick-borne illness
-appears to have nadired, improving
-also briefly with pancytopenia, now WBC normalized
Acute hypoxemic respiratory insufficiency:
-echo unremarkable
-CXR with atelectasis
-proBNP 732
-IVFs stopped 12/16/24
-encourage ambulation, IS
PAF (new Dx):
-cards following
-echo above
-[id number]-Rhkr-4 = 1, no AC regardless considering worsening thrombocytopenia
FULL/SCDs
Medically cleared for d/c if OK with ID.
Anticipated Discharge: Today
Subjective/Interval History
-
Date of Service: December 18, 2024
No new complaints.
Objective Data
-
Labs:
Laboratory Results
12/18/24
05:19
Sodium 142
Potassium 3.6
Chloride 114 H
Carbon Dioxide 24
BUN 27 H
Creatinine 0.8
Glucose 108 H
Calcium 8.2 L
Total Bilirubin 1.1
AST 89 H
ALT 87 H
Alkaline Phosphatase 71
Vital Signs:
Vital Signs
Temp Pulse Resp BP Pulse Ox
97.8 F 72 16 153/88 95
12/18/24 07:48 12/18/24 07:48 12/18/24 07:48 12/18/24 07:48 12/18/24 07:48
I&O
12/17/24 12/18/24 12/19/24
06:59 06:59 06:59
Intake Total 680 / 680 240 / 240
Output Total 600 / 600 650 / 650
Balance 80 / 80 -410 / -410
[2024-12-18] MEDS: DESENEX/MITRAZOL/ZEASORB 1 APPLIC TOPICAL (08:16)
[2024-12-18] MEDS: TOPROL XL 25 MG PO ×2 (08:17→19:15)
[2024-12-18] MEDS: VIBRAMYCIN 100 MG PO ×2 (08:17→19:14)
--- NOTE | 2024-12-18 09:54 | W.PN.ID1 ---
Addendum entered and electronically signed by Serenity Cook MD 12/18/24 13:25:
12/11/2024 Lyme WB IgG neg, IgM WB positive.
Patient with Anaplasma and LYME coinfection.
Continue doxycycline to complete 14d.
Original Note:
Date of Service
Date of Service: December 18, 2024
Today's Communication
- Continue doxycycline 100mg po bid (d4) x 14 days through 12/28/24.
- Follow-up with PCP for repeat CBC/CMP.
Of note, anaplsmaosis can be associated with HLH (hemophagocytic lymphohistocytosis), but extremely rate.
Assessment / Plan
# Anaplasmosis
# Intractable nausea
# Fever, nightsweats, chills- resolved
# Profound Fatigue
# thrombocytopenia
# Transient afib
#Elevated LFT's
-CT c/a/p neg
-UA neg
- Bcx x 4 neg to date.
- TTE no valvular abnormalities
- HIV neg
- Babesia smear - no parasite
- QTB, negative
- EBV serology panel suggests recent past EBV infection.
- Anaplasma PCR detected
- Continue doxycycline 100mg po bid (d4) x 14 days through 12/28/24.
- Follow-up with PCP for repeat CBC/CMP.
Of note, Anaplasmosis can be associated with HLH (hemophagocytic lymphohistocytosis), but extremely rate.
- Emphasized the importance of INSECT PREVENTION.
Chief Complaint
-: Fever
Subjective / Review of Systems
Still with intermittent hiccups.
+ fatigue, slight improvement.
Vital Signs / Physical Exam
Vital Signs
Vital Signs
Temp Pulse Resp BP Pulse Ox
97.8 F 72 16 153/88 95
12/18/24 07:48 12/18/24 07:48 12/18/24 07:48 12/18/24 07:48 12/18/24 07:48
Physical Exam
Constitutional: Non-toxic
Eyes: No Conjunctival Hemorrhage
Cardiovascular: Regular Rate and S1/S2
Pulmonary: Clear
Gastrointestinal: Soft, Non Tender, Non Distended and Normal Bowel Sounds
Extremities: Negative Edema
Neurological: AO x 3
Objective Data
Lab Data
Lab Results
12/17/24 05:16
12/18/24 05:19
Estimated Creat Clear 77 ml/min 12/18/24 05:19
Total Bilirubin 1.1 mg/dl (0.2-1.3) 12/18/24 05:19
AST 89 U/L (17-59) H 12/18/24 05:19
ALT 87 U/L (0-50) H 12/18/24 05:19
Alkaline Phosphatase 71 U/L (38-126) 12/18/24 05:19
Most recent labs reviewed.
Micro Results:
12/15/24 09:38 Blood Culture - Preliminary
Blood/Venous No Growth in 72 hours- Final report to follow
12/15/24 05:22 Blood Culture - Preliminary
Blood/Venous No Growth in 72 hours- Final report to follow
12/15/24 09:38 Blood Parasites Smear - Final
Blood/Venous
12/16/24 CXR: There is increased bibasilar opacities favored to represent atelectasis.
12/14/24 CT c/a/p No acute abnormality identified in the chest, abdomen, or pelvis. Hepatic and renal cysts. Mild to moderate colonic fecal burden.
12/11/24 CXR: No radiographic evidence for pneumonia. Mild subpleural scarring in the right lung apex. Mild elevation of the right hemidiaphragm. Severe tortuosity of the descending thoracic aorta.
09/12/24 Brain MRI: There are bilateral foci of CSF signal intensity within the cerebellar hemispheres, the largest in the inferior right cerebellar hemisphere, as reported on recent MRI of the cervical spine. These are compatible with multiple foci
of old infarction.
Care Review
Plan reviewed with: Physician (Dr. Montilla)
[2024-12-18 11:44] VITALS: BP 153/95
--- NOTE | 2024-12-18 13:17 | W.DCSUMMARY ---
Discharge Summary
Discharge Data
Date of Admission: 12/14/24
Date of Discharge: 12/18/24
-
Pending Results: No
Hospital Course
Primary diagnoses:
Acute anaplasmosis and Lyme disease
Thrombocytopenia
Pancytopenia
Acute hypoxic respiratory insufficiency
Paroxysmal atrial fibrillation
Secondary diagnoses:
None
Consultants:
Infectious disease
Cardiology
Hematology
Imaging:
CT C/A/P: No acute abnormality identified in the chest, abdomen, or pelvis. Hepatic and renal cysts. Mild to moderate colonic fecal burden.
Echo: EF 55-60%. No RWMA. No significant valvular disease. No prior study available for comparison.
CXR 12/16/24: Increased bibasilar opacities favored to represent atelectasis
74-year-old male who presented for his third ER visit on December 14, 2024 with chief complaints of persistent intermittent fever and nausea as outlined in the H&P done on mission. Hospital course by problem list:
Acute anaplasmosis and Lyme disease:
-12/07/24 first ER visit: Had fatigue, diaphoresis, chills, N/V, mildly elevated LFTs, no abdominal pain, fever 102 F. Improved with Zofran/IVFs, thought to be a viral illness, discharged home.
-12/11/24 second ER visit: had persistent fatigue/N. No abdominal pain, diarrhea, or new cough.
-12/14/24 third ER visit: fever 103 F
Imaging above. The patient was febrile initially and his fever resolved. Urinalysis was unremarkable, Monospot was negative. Blood cultures were no growth to date. Blood parasite smear was negative. He had a leukopenia with left shift as well
as thrombocytopenia that was likely consumptive due to acute infection. He was seen in consultation by infectious disease and hematology. HIV and tuberculosis testing were negative. EBV IgG/IgM/early Ag/Nuclear Ag POS (past infection). Anaplasma
phagocytophilum testing and a Lyme Western blot were positive signifying coinfection. The patient was started on empiric doxycycline on December 16, 2019 5 in the morning and will continue through December 28, 2024.
Acute hypoxemic respiratory insufficiency: Patient's echocardiogram was unremarkable as above. Chest x-ray showed atelectasis. proBNP 732. Ambulation was encouraged. Incentive spirometer was ordered.
PAF (new Dx): Patient was seen in consultation by cardiology and started on a beta-mell. His MDVIO-Lerv-6 = 1, no AC regardless considering thrombocytopenia.
Discharge Plan
-
Patient Disposition: [facility]/SNF
Discharge Diagnosis/Procedures: Acute anaplasmosis and Lyme disease
Condition: Good
Diet: Regular
Activity: As tolerated
Driving Restrictions: Not until seen by your Dr
Blood Work: CBC and CMP in 1 to 2 weeks, prescription from PCP
Other Services: VN
Referrals:
Antelmo Montesinos PA [Family Provider, Family Practice] - in less than 1 week
Alfie De La Garza MD [Active, Cardiology] - 01/18/25 2:00 pm
Referral Note: You have an appt to see Dr. De La Garza's nurse practitioner, Ailin, at the [place] office on 01/18/25 at 2 PM. You are then scheduled to see Dr. De La Garza at the [place] office on 04/22/2025 at 1:40 PM. Please call [phone] if you
need to reschedule.
Prescriptions:
New
doxycycline hyclate 100 mg Capsule
100 mg PO Q12 Qty: 23 0RF
metoprolol succinate 25 mg Tablet Extended Release 24 Hr
25 mg PO BID Qty: 30 0RF
Continued
ondansetron 4 mg tablet,disintegrating
4 mg PO Q8H PRN (Reason: nausea and vomiting) Qty: 10 0RF
atorvastatin 10 mg Tablet
10 mg PO HS
gabapentin 300 mg Capsule
300 mg PO HS
cholecalciferol (vitamin D3)
1 tab PO DAILY
magnesium
1 tab PO DAILY
cholecalciferol (vitamin D3) [Vitamin D3] 50 mcg (2,000 unit) Capsule
PO DAILY
dietary supplement
1 PO
Rx Instructions:
organnon's active man's formula multipurpose supplement
magnesium glycinate
400 mg PO DAILY
Discontinued
ibuprofen [Advil] 200 mg Tablet
400 mg PO BIDPRN PRN (Reason: fever)
Discharge Orders:
Discharge Patient (As Directed); Ordered 12/18/24
Ordered By: Papa Montilla
Discharge Date and Time
Print Language: GUYANESE
--- NOTE | 2024-12-18 15:07 | CM ---
CM met with Maximiliano several times today to coordinate transfer to SNF. [facility] has a bed available for transfer today; pt is agreeable to transfer to [facility]. ALEXANDER spoke with pt's who is also agreeable to pt's transfer to
[facility]. She will meet Maximiliano at the facility.
IMM reviewed with pt's via telephone; verbal consent received. Copy left at bedside with patient.
Plan: Discharge to [facility] today via ambulance at 7PM.
[facility] Report: [phone]
[facility]
[2024-12-18 15:13] VITALS: BP 170/97
[2024-12-18 16:51] VITALS: BP 150/89
== END 2024-12-18 19:55 | DRG 868 ==
LOC: 3 WEST ACU 14:41
PROVIDERS: Registered Nurse; ADMITTING PHYSICIAN Internal Medicine; ATTENDING PHYSICIAN Internal Medicine; CONSULT PHYSICIAN Internal Medicine Cardiovascular Disease; CONSULT PHYSICIAN Internal Medicine Hematology & Oncology; CONSULT PHYSICIAN Internal Medicine Infectious Disease; EMERGENCY PHYSICIAN Emergency Medicine; FAMILY PHYSICIAN Physician Assistant
DX: A69.20 Lyme disease, unspecified (principal); A79.82 Anaplasmosis [A. phagocytophilum]; D61.818 Other pancytopenia; J98.11 Atelectasis; I48.0 Paroxysmal atrial fibrillation; R09.02 Hypoxemia; R06.89 Other abnormalities of breathing; Z79.899 Other long term (current) drug therapy; Z86.19 Personal history of other infectious and parasitic diseases
CPT/HCPCS: 71046; 71260; 74177; 80048; 80053; 81003; 81015; 82728; 83605; 83880; 84443; 84484; 85025; 85027; 86480; 86617; 86618; 86663; 86664; 86665; 87015; 87040; 87207; 87389; 87468; 87484; 87798; 93005; 93306; 96360; 97163; 97167; 99284; 99285; Q9967